=== PATIENT | male | born 1975 | race Caucasian/White ===

== ENCOUNTER 2016-11-27 13:07 | Inpatient (IN) | payer BC, OTHER ==
[~2016-11-27] VITALS: Ht 182.9 cm; Wt 88.5 kg
[~2016-11-27 13:07] MED LIST: BUPR100T6 PO
[2016-11-27] MEDS ORDERED: IV NORMAL SALINE 1000ML BAG 1,000 ML IV SCH (14:04)
[2016-11-27] MEDS ORDERED: ONDANSETRON PF 4 MG/2 ML VIAL. IV ONE (14:15)
[2016-11-27 14:17] LABS: BILIRUBIN,URINE NEGATIVE (NEG); GLUCOSE,URINE NEGATIVE (NEG); NITRITE,URINE NEGATIVE (NEG); PROTEIN,URINE 30 mg/dL (NEG-TRACE); UROBILINOGEN,URINE 0.2 mg/dL (0.2 mg/dL)
[2016-11-27 14:21] LABS: BARBITURATES NEG (NEG); BENZODIAZEPINES NEG (NEG); CANNABINOIDS POS (NEG); COCAINE NEG (NEG); METHADONE NEG (NEG); OPIATES NEG (NEG); PHENCYCLIDINE NEG (NEG)
[2016-11-27 14:22] LABS: BASO % 0 % (0-3); EOS % 0 % (0-3); HEMATOCRIT 42.7 % (39.0-53.0); HEMOGLOBIN 14.6 g/dL (13.0-17.5); LYMPH # 1.5 x10^3/uL (1.0-4.8); LYMPH % 5 % (24-48); MEAN CORPUSCULAR HEMOGLOBIN 31 pg (25-35); MEAN CORPUSCULAR HGB CONC 34 g/dL (31-37); MEAN CORPUSCULAR VOLUME 90 fL (79-100); MONO % 8 % (0-9); NEUT % 86 % (31-73); PLATELET COUNT 433 x10^3/uL (140-400); RED BLOOD COUNT 4.73 x10^6/uL (4.30-5.70); RED CELL DISTRIBUTION WIDTH 12.6 % (11.5-14.5); WHITE BLOOD COUNT 27.8 x10^3/uL (4.0-11.0)
[2016-11-27 14:25] LABS: BACTERIA,URINE 0 /HPF (0-FEW)
[2016-11-27 14:26] LABS: SQUAMOUS EPITHELIAL CELL,UR FEW /LPF
[2016-11-27 14:31] LABS: CALCIUM 8.5 mg/dL (8.5-10.1); GFR 82.8; POTASSIUM 3.4 mmol/L (3.5-5.1)
[2016-11-27 14:37] LABS: ALBUMIN/GLOBULIN RATIO 0.6 (1.0-1.7); TOTAL BILIRUBIN 0.8 mg/dL (0.2-1.0); TOTAL PROTEIN 7.9 g/dL (6.4-8.2)
[2016-11-27 15:14] LABS: PLT ESTIMATE INCREASED (ADEQUATE)
[2016-11-27 15:15] LABS: CRENATED RBC PRESENT; OVALOCYTES OCC; TOXIC GRANULATION SLIGHT
--- NOTE | 2016-11-27 15:26 | ED.ADGEN ---
Past Medical History Past Medical History: Other Additional Past Medical Histor: colitis Past Surgical History: Tonsillectomy, Other Additional Past Surgical Histo: vasectomy Alcohol Use: Occasionally Drug Use: None Adult General Chief Complaint Chief Complaint: ABDOMINAL PAIN HPI HPI Patient is a 41 year old man, with history of colitis, who completed a course of Flagyl and Cipro yesterday after being diagnosed with colitis at another hospital 2 weeks ago. Patient states that he was feeling better, with improving pain, nausea, vomiting and diarrhea, and then began experiencing exacerbation of symptoms again early this morning, with multiple doses of nausea, vomiting, and loose brown stool. Denies any blood in emesis or in stool. Patient states that he does not her primary care provider has not yet established follow-up with a GI doctor for additional evaluation. He states his pain is located down to the left lower quadrant, a sharp and cramping, states his pain is currently only one out of 10. Patient states he did have fevers at home during that previous week, states he did not check them a thermometer but he was having sweats that within break. He denies any injuries, any travel, any sick contacts or exposures, any inciting symptoms, any urinary complaints. Denies any previous history before 2 weeks ago. Review of Systems Review of Systems Constitutional: Denies fever or chills. [] Eyes: Denies change in visual acuity. [] HENT: Denies nasal congestion or sore throat. [] Respiratory: Denies cough or shortness of breath. [] Cardiovascular: Denies chest pain or edema. [] GI: Left lower quadrant abdominal pain, nausea, vomiting, diarrhea. No bloody stools or bloody emesis. : Denies dysuria. [] Musculoskeletal: Denies back pain or joint pain. [] Integument: Denies rash. [] Neurologic: Denies headache, focal weakness or sensory changes. [] Endocrine: Denies polyuria or polydipsia. [] Lymphatic: Denies swollen glands. [] Psychiatric: Denies depression or anxiety. [] Current Medications Current Medications Current Medications Medications (Trade) Dose Ordered Sig/North Start Time Stop Time Status Last Admin Dose Admin Fentanyl Citrate (Fentanyl 2ml Vial) 25 mcg PRN Q15MIN PRN 11/27/16 15:15 11/28/16 15:14 11/27/16 17:30 25 MCG Info (Do NOT chart on this entry -- for MONITORING) 1 each PRN DAILY PRN 11/27/16 15:30 11/29/16 15:29 Iohexol (Omnipaque 300 Mg/ml) 75 ml 1X ONCE 11/27/16 15:30 11/27/16 15:31 DC 11/27/16 15:26 75 ML Ondansetron HCl (Zofran) 4 mg 1X ONCE 11/27/16 14:15 11/27/16 14:16 DC 11/27/16 14:24 4 MG Sodium Chloride 1,000 ml @ 1,000 mls/hr Q1H 11/27/16 14:04 11/27/16 15:03 DC 11/27/16 14:04 1,000 MLS/HR Allergies Allergies Allergies Coded Allergies Type Severity Reaction Last Updated Verified No Known Drug Allergies 10/08/13 No Physical Exam Physical Exam Constitutional: Well developed, well nourished, no acute distress, non-toxic appearance. [] HENT: Normocephalic, atraumatic, bilateral external ears normal, oropharynx moist, no oral exudates, nose normal. [] Eyes: PERRLA, EOMI, conjunctiva normal, no discharge. [] Neck: Normal range of motion, no tenderness, supple, no stridor. [] Cardiovascular:Heart rate regular rhythm, no murmur, S1, S2, no rubs or gallops. [] Lungs & Thorax: Bilateral breath sounds clear to auscultation , no wheezing, rhonchi, rales. No chest crepitus or tenderness. [] Abdomen: Bowel sounds normal, soft, tenderness to palpation with guarding in the left lower quadrant, no rigidity, no rebound, no masses, no pulsatile masses. [] Skin: Warm, dry, no erythema, no rash. [] Back: No tenderness, no CVA tenderness. [] Extremities: No tenderness, no cyanosis, no clubbing, ROM intact, no edema. [] Neurologic: Alert and oriented X 3, normal motor function, normal sensory function, no focal deficits noted. [] Psychologic: Affect normal, judgement normal, mood normal. [] Current Patient Data Vital Signs Vital Signs Date Time Temp Pulse Resp B/P (MAP) Pulse Ox O2 Delivery O2 Flow Rate FiO2 11/27/16 16:41 110 40 144/67 (92) 99 11/27/16 16:20 Room Air 11/27/16 13:45 98.3 98.3 Lab Values Laboratory Tests Test 11/27/16 13:45 11/27/16 14:15 Urine Collection Type Unknown Urine Color [place] Urine Clarity Clear Urine pH 6.0 Urine Specific [place] 1.015 Urine Protein 30 mg/dL (NEG-TRACE) Urine Glucose (UA) Negative mg/dL (NEG) Urine Ketones (Stick) >=80 mg/dL (NEG) Urine Blood Negative (NEG) Urine Nitrite Negative (NEG) Urine Bilirubin Negative (NEG) Urine Urobilinogen Dipstick 0.2 mg/dL (0.2 mg/dL) Urine Leukocyte Esterase Small (NEG) Urine RBC 1-2 /HPF (0-2) Urine WBC 1-4 /HPF (0-4) Urine Squamous Epithelial Cells Few /LPF Urine Transitional Epithelial Cells Few /LPF Urine Bacteria 0 /HPF (0-FEW) Urine Mucus Mod /LPF Urine Opiates Screen Neg (NEG) Urine Methadone Screen Neg (NEG) Urine Barbiturates Neg (NEG) Urine Phencyclidine Screen Neg (NEG) Urine Amphetamine/Methamphetamine Neg (NEG) Urine Benzodiazepines Screen Neg (NEG) Urine Cocaine Screen Neg (NEG) Urine Cannabinoids Screen Pos (NEG) Urine Ethyl Alcohol Neg (NEG) White Blood Count 27.8 x10^3/uL (4.0-11.0) H Red Blood Count 4.73 x10^6/uL (4.30-5.70) Hemoglobin 14.6 g/dL (13.0-17.5) Hematocrit 42.7 % (39.0-53.0) Mean Corpuscular Volume 90 fL (79-100) Mean Corpuscular Hemoglobin 31 pg (25-35) Mean Corpuscular Hemoglobin Concent 34 g/dL (31-37) Red Cell Distribution Width 12.6 % (11.5-14.5) Platelet Count 433 x10^3/uL (140-400) H Neutrophils (%) (Auto) 86 % (31-73) H Lymphocytes (%) (Auto) 5 % (24-48) L Monocytes (%) (Auto) 8 % (0-9) Eosinophils (%) (Auto) 0 % (0-3) Basophils (%) (Auto) 0 % (0-3) Neutrophils # (Auto) 24.0 x10^3uL (1.8-7.7) H Lymphocytes # (Auto) 1.5 x10^3/uL (1.0-4.8) Monocytes # (Auto) 2.3 x10^3/uL (0.0-1.1) H Eosinophils # (Auto) 0.0 x10^3/uL (0.0-0.7) Basophils # (Auto) 0.0 x10^3/uL (0.0-0.2) Segmented Neutrophils % 89 % (35-66) H Lymphocytes % 2 % (24-48) L Monocytes % 9 % (0-10) Toxic Granulation Slight Platelet Estimate Increased (ADEQUATE) Platelet Clumps, EDTA Present Large Platelets Occ Giant Platelets Occ Ovalocytes Occ Crenated Cell Present Sodium Level 135 mmol/L (136-145) L Potassium Level 3.4 mmol/L (3.5-5.1) L Chloride Level 95 mmol/L (98-107) L Carbon Dioxide Level 31 mmol/L (21-32) Anion Gap 9 (6-14) Blood Urea Nitrogen 8 mg/dL (8-26) Creatinine 1.0 mg/dL (0.7-1.3) Estimated GFR (Cockcroft-Gault) 82.8 BUN/Creatinine Ratio 8 (6-20) Glucose Level 137 mg/dL (70-99) H Calcium Level 8.5 mg/dL (8.5-10.1) Total Bilirubin 0.8 mg/dL (0.2-1.0) Aspartate Amino Transferase (AST) 30 U/L (15-37) Alanine Aminotransferase (ALT) 27 U/L (16-63) Alkaline Phosphatase 83 U/L (46-116) Total Protein 7.9 g/dL (6.4-8.2) Albumin 3.0 g/dL (3.4-5.0) L Albumin/Globulin Ratio 0.6 (1.0-1.7) L Lipase 125 U/L (73-393) Laboratory Tests 11/27/16 14:15 Laboratory Tests 11/27/16 14:15 EKG EKG [] Radiology/Procedures Radiology/Procedures [][facility] [address] [place] [address] IMAGING REPORT Signed PATIENT: INOCENCIA SMITH ACCOUNT: [id number] : 1975 LOCATION: ER AGE: 41 SEX: M EXAM STATUS: REG ER ORD. PHYSICIAN: VERITO PHAM DO REASON: abd pain/fever/n/v/d PROCEDURE: CT ABD PELV W/ IV CONTRST ONLY Indication recent colitis. Nausea vomiting and diarrhea. Abdominal pain and fever. Axial images through the abdomen and pelvis were obtained. No oral contrast was administered. Approximately 75 cc of Omnipaque 300 was administered. No prior imaging of the abdomen or pelvis is available. The lung bases are clear. The liver and spleen appear unremarkable. The gallbladder appears grossly normal. No pancreatic adrenal or renal anomaly is seen. An acute or significant finding in the upper or mid abdomen is not seen. In the pelvis there are inflammatory changes associated with the sigmoid colon compatible with colitis. There is a large air and fluid collection in the left lower abdomen and pelvis measuring approximately 12 cm in length x 5.5 cm transverse compatible with an abscess. A much smaller abscess, measuring approximately 5.6 cm x 1.3 cm is seen immediately adjacent to the mid sigmoid colon with a somewhat larger abscess measuring approximately 4 cm in greatest dimension adjacent to the proximal sigmoid colon. A small amount of extraluminal air, in the mesentery, is seen associated with this latter 4 cm abscess. IMPRESSION: Findings predominantly centered on the sigmoid colon compatible with colitis. There are at least 3 abscesses in the pelvis the largest measuring 12 cm in greatest dimension DICTATED and SIGNED BY: INGRID MARINO MD DATE: 11/27/16 4089 CC: VERITO PHAM DO; NO PCP ~ Course & Med Decision Making Course & Med Decision Making Pertinent Labs and Imaging studies reviewed. (See chart for details) Patient with tenderness palpation, history concerning for colitis that is refractory to outpatient antibiotic treatment. Discussion at bedside regarding risk versus benefit of proceeding with repeat CT, patient is agreeable to receiving laboratory studies repeat CT abdomen and pelvis with contrast. Laboratory studies reveal a leukocytosis of 27, with a left shift. Patient with at least 3 large abscesses noted on CT, with colitis in the sigmoid colon, and intraluminal air noted. I did discuss findings with patient and family at bedside, patient is agreeable for [place] or the hospital for IV antibiotics and consultation with surgery interventional radiology. Findings as above discussed with Dr. Gonzalez of general surgery, who will evaluate patient, as agreement at this time with plan for Zosyn, I also discussed coverage with Dr. Arevalo of infectious disease, he recommends adding fluconazole to the Zosyn coverage, and he will follow the patient as well. Additionally consultation was placed prior to determine if the abscesses can be drained with their assistance. Findings as above discussed with Dr. Swan of internal medicine, patient accepted his service as a full admission to the medical telemetry floor , patient with heart rate in the 90s, blood pressures remain 140s over 60s, he remained afebrile emergency Department, resting comfortably after receiving antiemetics. Bridge orders entered per discussion. Dragon Disclaimer Dragon Disclaimer This electronic medical record was generated, in whole or in part, using a voice recognition dictation system. Departure Impression: Primary Impression: Colitis Disposition: ADMITTED INPATIENT Admitting Physician: Danna Swan Condition: IMPROVED VERITO PHAM DO Nov 27, 2016 15:26
[2016-11-27] MEDS ORDERED: IOHEXOL 300 MG/ML 75 ML VIAL IV ONE (15:30)
[2016-11-27] MEDS ORDERED: CONTRAST GIVEN MC PRN (15:30)
[2016-11-27] MEDS: fentaNYL PF VIAL 100 MCG/2 ML VIAL IV PRN ×2 (15:38→17:30)
--- NOTE | 2016-11-27 16:01 | RAD ---
Indication recent colitis. Nausea vomiting and diarrhea. Abdominal pain and fever. Axial images through the abdomen and pelvis were obtained. No oral contrast was administered. Approximately 75 cc of Omnipaque 300 was administered. No prior imaging of the abdomen or pelvis is available. The lung bases are clear. The liver and spleen appear unremarkable. The gallbladder appears grossly normal. No pancreatic adrenal or renal anomaly is seen. An acute or significant finding in the upper or mid abdomen is not seen. In the pelvis there are inflammatory changes associated with the sigmoid colon compatible with colitis. There is a large air and fluid collection in the left lower abdomen and pelvis measuring approximately 12 cm in length x 5.5 cm transverse compatible with an abscess. A much smaller abscess, measuring approximately 5.6 cm x 1.3 cm is seen immediately adjacent to the mid sigmoid colon with a somewhat larger abscess measuring approximately 4 cm in greatest dimension adjacent to the proximal sigmoid colon. A small amount of extraluminal air, in the mesentery, is seen associated with this latter 4 cm abscess. IMPRESSION: Findings predominantly centered on the sigmoid colon compatible with colitis. There are at least 3 abscesses in the pelvis the largest measuring 12 cm in greatest dimension
[2016-11-27] MEDS ORDERED: PIPERACILLIN/TAZOBACTAM 3.375 GM in IV NORMAL SALINE 50ML 50 ML IV ONE (17:00)
[2016-11-27] MEDS ORDERED: PIP/TAZO PER PHARMACY MC PRN (17:00)
[2016-11-27 18:28] VITALS: BP 131/65
[2016-11-27 19:00] VITALS: BP 139/72
[2016-11-27] MEDS ORDERED: IV DEXTROSE 5 %-0.45 % NACL 1,000 ML IV ONE (21:00)
[2016-11-27] MEDS ORDERED: ONDANSETRON PF 4 MG/2 ML VIAL. IV PRN ×2 (21:00)
[2016-11-27] MEDS ORDERED: ACETAMINOPHEN 325 MG TABLET. PO PRN (21:00)
[2016-11-27] MEDS: MAG HYDROX/ALUMINUM HYD/SIMETH 30 ML ORAL.SUSP PO PRN (21:41)
[2016-11-27] MEDS: MORPHINE SULFATE 2 MG/ML DISP.SYRIN. IV PRN (21:44)
[2016-11-27] MEDS: FLUCONAZOLE 400MG/200ML PREMIX 200 ML IV SCH (21:45)
[2016-11-27] MEDS: ZOLPIDEM 5 MG TABLET. PO PRN (21:45)
[2016-11-27] MEDS: IV NORMAL SALINE 1000ML BAG 1,000 ML IV SCH (21:46)
--- NOTE | 2016-11-27 22:06 | HP ---
ADMIT DATE: 11/27/2016 CHIEF COMPLAINT: Abdominal pain. HISTORY OF PRESENT ILLNESS: The patient is a pleasant middle-aged male who was just released from another hospital where he had been treated for colitis. He went home with a script for Navya and yl. I think he finished that. When he presented to our ER, he is still hurting. We scanned his belly. He has got three large abscesses. We are going to consult Interventional Radiology to place a drain as well as General Surgery to consider surgery if we need to. PAST MEDICAL HISTORY: The recently treated colitis, tonsillectomy and vasectomy. ALLERGIES: None. FAMILY HISTORY: Hypertension. SOCIAL HISTORY: Does not drink, smoke or take drugs. MEDICATIONS: Reviewed, please refer to the MRAD. REVIEW OF SYSTEMS: GENERAL: No history of weight change, weakness or fevers. SKIN: No bruising, hair changes or rashes. EYES: No blurred, double or loss of vision. NOSE AND THROAT: No history of nosebleeds, hoarseness or sore throat. HEART: No history of palpitations, chest pain or shortness of breath on exertion. LUNGS: Denies cough, hemoptysis, wheezing or shortness of breath. GASTROINTESTINAL: He complains of abdominal pain. GENITOURINARY: No history of frequency, urgency, hesitancy or nocturia. NEUROLOGIC: Denies history of numbness, tingling, tremor or weakness. PSYCHIATRIC: No history of panic, anxiety or depression. ENDOCRINE: No history of heat or cold intolerance, polyuria or polydipsia. EXTREMITIES: Denies muscle weakness, joint pain, pain on walking or stiffness. PHYSICAL EXAMINATION: VITAL SIGNS: Temperature afebrile, pulse 67, respirations 18, blood pressure 142/90. GENERAL: He is alert, cooperative. His is present. HEART: Normal S1, S2. LUNGS: Clear. ABDOMEN: Soft. Decreased bowel sounds, tender diffusely. EXTREMITIES: Trace edema. SKIN: No rashes. PSYCHIATRIC: He is a little anxious. VASCULAR: Good capillary refill. ENDOCRINE: No thyromegaly. LYMPHATICS: No cervical nodes. HEMATOPOIETIC: No bruising. LABORATORY DATA: White count is 28, hemoglobin 14, platelets 433. Electrolytes: Sodium 135, potassium 3.4, chloride 95, bicarbonate 31, BUN 8, creatinine 1 and glucose 137. ASSESSMENT AND PLAN: Colitis with multiple abscesses. The patient has been admitted. We will start IV Zosyn. Consult Infectious Disease. Consult General Surgery. Continue home medicines. Clear liquid diet. ____ go to the Surgery, then we will make him n.p.o. PROGNOSIS: Very guarded. SUSY BHARDWAJ DO DR: Riri JOB#: [id number] / [id number]
[2016-11-27 23:00] VITALS: BP 140/74
[2016-11-28] VITALS (14 sets, daily range): BP systolic 110–131; BP diastolic 63–80
--- NOTE | 2016-11-28 00:54 | ACF ---
Admission Forms Criteria ABDOMINAL PAIN Clinical Indications for Admission to Inpatient Care ( flandreau/check or initial the applicable condition/criteria): Admission is indicated for ANY ONE of the following (1)(2)(3)(4)(5)(6): [ ]I. Surgery needed that cannot be performed on ambulatory basis [ ]II. Peritoneal signs present (eg, rebound tenderness, rigidity) [ ]III. Evaluation requires patient to not eat or drink for extended period ( eg, more than 24 hours). [ X]IV. Inpatient admission required[B] rather than observation care (see Abdominal Pain: Observation Care guideline as appropriate) because of ANY ONE of the following(7)(8)(9): [ ] a) Hemodynamic instability [ ]b) Severe pain requiring acute inpatient management [X ]c) Identification of etiology or finding that requires inpatient care (eg, aortic dissection, free air,bowel ischemia)(10) [ ]d) Absent bowel sounds with complete ileus (11) [ ]e) Signs of intestinal obstruction[C] [ ]f) Suspected toxic megacolon [ ]g) Severe electrolyte abnormalities requiring inpatient care [ ]h) High fever or infection requiring inpatient admission as indicated by ANY ONE of the following (12)(13): [ ]i) Appropriate outpatient or observation care antimicrobial treatment unavailable, not effective, or not feasible [ ]ii) Documented bacteremia [ ]iii) Temperature greater than 104.9 degrees F (40.5 degrees C) (oral) [ ]iv) Temperature greater than 103.1 degrees F (39.5 degrees C) ( oral) or less than 96.8 degrees F (36 degrees C) (rectal) that does not respond to all emergency treatment measures [ ]i) IV fluid required rather than oral rehydration to replace significant ongoing (eg, for greater than 24 hours) losses (greater than 3 L/m2 per day)(14)(15) [ ]j) Percutaneous or open drainage (eg, abscess, biliary tract) procedures [ ]k) Parenteral nutrition regimen that must be implemented on inpatient basis [ ]l) Other condition, treatment, or monitoring requiring inpatient admission Extended stay beyond goal length of stay may be needed for (1)(3)(4)(10)(16): [ ]a) Surgery (e.g., colectomy, revascularization procedure) [ ]b) Persistent abdominal pain with suspected intra-abdominal process [ ]c) Diagnosed condition requiring continued stay (e.g., pancreatitis, complicated diverticulitis) The original [facility] content created by [facility] has been revised. The portions of the content which have been revised are identified through the use of italic text, and [facility] has neither reviewed nor approved the modified material.All other unmodified content is copyright [facility]. Please see references footnoted in the original [facility] edition 2015 Admission Criteria Met?: Yes SHANELLE GUPTA Nov 28, 2016 00:54
[2016-11-28] MEDS: PIPERACILLIN/TAZOBACTAM 3.375 GM in IV NORMAL SALINE 50ML 50 ML IV SCH ×4 (01:05→18:28)
[2016-11-28 06:25] LABS: CALCIUM 8.5 mg/dL (8.5-10.1); CREATININE 0.8 mg/dL (0.7-1.3); GFR 107.1; POTASSIUM 3.1 mmol/L (3.5-5.1)
[2016-11-28 06:38] LABS: BASO % 0 % (0-3); EOS % 0 % (0-3); HEMATOCRIT 36.3 % (39.0-53.0); HEMOGLOBIN 12.7 g/dL (13.0-17.5); LYMPH # 1.2 x10^3/uL (1.0-4.8); LYMPH % 6 % (24-48); MEAN CORPUSCULAR HEMOGLOBIN 32 pg (25-35); MEAN CORPUSCULAR HGB CONC 35 g/dL (31-37); MEAN CORPUSCULAR VOLUME 90 fL (79-100); MONO % 9 % (0-9); NEUT % 85 % (31-73); PLATELET COUNT 371 x10^3/uL (140-400); RED BLOOD COUNT 4.03 x10^6/uL (4.30-5.70); WHITE BLOOD COUNT 18.4 x10^3/uL (4.0-11.0)
[2016-11-28] MEDS: PANTOPRAZOLE 40 MG TABLET.DR. PO SCH (07:30)
--- NOTE | 2016-11-28 08:35 | PDOC2 ---
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 He just finished is treatment and began having abdominal pain -LLQ, emesis, and generalized ill feeling. + intermittent fevers/chills, low appetite. + new onset diarrhea No history of colitis or IBD, never had a colonoscopy He is down here with family, his father . Past Medical History Past Medical History colitis recent Past Surgical History Past Surgical History: Tonsillectomy, Other (vasectomy) Family History Family History: Other (no colon cancer, no IBD) Social History <1 pack per day ALCOHOL: occassional Drugs: Marijuana Current Medications Current Medications Current Medications Sodium Chloride 1,000 ml @ 1,000 mls/hr Q1H IV Last administered on 11/27/16 14:04; Start 11/27/16 at 14:04; Stop 11/27/16 at 15:03; Status DC Ondansetron HCl (Zofran) 4 mg 1X ONCE IV Last administered on 11/27/16 14:24 ; Start 11/27/16 at 14:15; Stop 11/27/16 at 14:16; Status DC Fentanyl Citrate (Fentanyl 2ml Vial) 25 mcg PRN Q15MIN PRN IV PAIN GREATER THAN 3/10 Last administered on 11/27/16 17:30; Start 11/27/16 at 15:15; Stop at 15:14 Iohexol (Omnipaque 300 Mg/ml) 75 ml 1X ONCE IV Last administered on 11/27/16 15:26; Start 11/27/16 at 15:30; Stop 11/27/16 at 15:31; Status DC Info (Do NOT chart on this entry -- for MONITORING) 1 each PRN DAILY PRN MC SEE COMMENTS; Start 11/27/16 at 15:30; Stop 11/29/16 at 15:29 Piperacillin Sod/ Tazobactam Sod (Zosyn Per Pharmacy) 1 each PRN DAILY PRN MC SEE COMMENTS; Start 11/27/16 at 17:00 Piperacillin Sod/ Tazobactam Sod 3.375 gm/Sodium Chloride 50 ml @ 100 mls/hr 1X ONCE IV Last administered on 11/27/16 17:30; Start 11/27/16 at 17:00; Stop 11/27/16 at 17:29; Status DC Piperacillin Sod/ Tazobactam Sod 3.375 gm/Sodium Chloride 50 ml @ 100 mls/hr Q6HRS IV Last administered on 11/28/16 06:20; Start 11/28/16 at 00:00 Ondansetron HCl (Zofran) 4 mg PRN Q6HRS PRN IV NAUSEA/VOMITING; Start 11/27/16 at 21:00 Sodium Chloride 1,000 ml @ 75 mls/hr [id number] IV Last administered on 21:46; Start 11/27/16 at 21:00 Morphine Sulfate 2 mg PRN Q2HR PRN IV PAIN Last administered on 11/27/16 21:44 ; Start 11/27/16 at 21:00 Al Hydroxide/Mg Hydroxide (Mylanta Plus Xs) 30 ml PRN Q6HRS PRN PO HEARTBURN / GAS Last administered on 11/27/16 21:41; Start 11/27/16 at 21:00 Zolpidem Tartrate (Ambien) 5 mg PRN QHS PRN PO INSOMNIA Last administered on 21:45; Start 11/27/16 at 21:00 Pantoprazole Sodium (Protonix) 40 mg DAILYAC PO ; Start 11/28/16 at 07:30 Acetaminophen (Tylenol) 650 mg PRN Q6HRS PRN PO FEVER > 100.5'F Last administered on 11/27/16 21:45; Start 11/27/16 at 21:00 Ondansetron HCl (Zofran) 4 mg PRN Q8HRS PRN IV NAUSEA/VOMITING; Start 11/27/16 at 21:00; Stop 11/28/16 at 20:59 Morphine Sulfate 4 mg PRN Q2HR PRN IV PAIN; Start 11/27/16 at 21:00; Stop 11/28 at 20:59 Fluconazole/ Sodium Chloride 200 ml @ 100 mls/hr Q24H IV Last administered on 8/10/17at 21:45; Start 11/27/16 at 21:30 Dextrose/Sodium Chloride 1,000 ml @ 100 mls/hr 1X ONCE IV ; Start 11/27/16 at 21:00; Stop 11/28/16 at 06:59; Status DC Active Scripts Active Reported Wellbutrin (Bupropion Hcl) 100 Mg Tablet 150 Mg PO DAILY Allergies Allergies: Coded Allergies: latex (Verified Allergy, Mild, 11/28/16) ROS General: YES: Chills, Fatigue, Other (fevers) PSYCHOLOGICAL ROS: No: Anxiety, Depression Eyes: No Blurry vision, No Double vision HEENT: No: Heacaches, Sore Throat Hematological and Lymphatic: No: Bleeding Problems, Blood Clots Respiratory: No: Cough, Shortness of breath Cardiovascular: No Chest Pain, No Palpitations Gastrointestinal: Yes Other (see hpi) Genitourinary: No Dysuria, No Retention Musculoskeletal: No Joint Pain, No Muscle Pain Neurological: No Impaired Coord/balance, No Numbness/Tingling Skin: No Pruritus, No Rash Physical Exam General: Alert, Oriented X3, Cooperative, No acute distress HEENT: PERRLA, Mucous membr. moist/pink Lungs: Clear to auscultation, Normal air movement Heart: Regular rate, Normal S1, Normal S2, No murmurs Abdomen: Soft, Other (ND, mild tenderness to LLQ, no peritoneal signs ) Extremities: No clubbing, No cyanosis Skin: No rashes, No breakdown Neuro: Normal gait, Normal speech Psych/Mental Status: Mental status NL, Mood NL MUSCULOSKELETAL: No deformity, No swelling Vitals VITALS Vital Signs Date Time Temp Pulse Resp B/P (MAP) Pulse Ox O2 Delivery O2 Flow Rate FiO2 11/28/16 03:00 97.7 105 18 127/66 (86) 97 Room Air 97.7 Labs Labs Laboratory Tests Test 11/27/16 13:45 11/27/16 14:15 11/28/16 00:02 11/28/16 04:30 Urine Collection Type Unknown Urine Color Marion Urine Clarity Clear Urine pH 6.0 Urine Specific [place]lor 1.015 Urine Protein 30 mg/dL (NEG-TRACE) Urine Glucose (UA) Negative mg/dL (NEG) Urine Ketones (Stick) >=80 mg/dL (NEG) Urine Blood Negative (NEG) Urine Nitrite Negative (NEG) Urine Bilirubin Negative (NEG) Urine Urobilinogen Dipstick 0.2 mg/dL (0.2 mg/dL) Urine Leukocyte Esterase Small (NEG) Urine RBC 1-2 /HPF (0-2) Urine WBC 1-4 /HPF (0-4) Urine Squamous Epithelial Cells Few /LPF Urine Transitional Epithelial Cells Few /LPF Urine Bacteria 0 /HPF (0-FEW) Urine Mucus Mod /LPF Urine Opiates Screen Neg (NEG) Urine Methadone Screen Neg (NEG) Urine Barbiturates Neg (NEG) Urine Phencyclidine Screen Neg (NEG) Urine Amphetamine/Methamphetamine Neg (NEG) Urine Benzodiazepines Screen Neg (NEG) Urine Cocaine Screen Neg (NEG) Urine Cannabinoids Screen Pos (NEG) Urine Ethyl Alcohol Neg (NEG) White Blood Count 27.8 x10^3/uL (4.0-11.0) 18.4 x10^3/uL (4.0-11.0) Red Blood Count 4.73 x10^6/uL (4.30-5.70) 4.03 x10^6/uL (4.30-5.70) Hemoglobin 14.6 g/dL (13.0-17.5) 12.7 g/dL (13.0-17.5) Hematocrit 42.7 % (39.0-53.0) 36.3 % (39.0-53.0) Mean Corpuscular Volume 90 fL (79-100) 90 fL (79-100) Mean Corpuscular Hemoglobin 31 pg (25-35) 32 pg (25-35) Mean Corpuscular Hemoglobin Concent 34 g/dL (31-37) 35 g/dL (31-37) Red Cell Distribution Width 12.6 % (11.5-14.5) 13.0 % (11.5-14.5) Platelet Count 433 x10^3/uL (140-400) 371 x10^3/uL (140-400) Neutrophils (%) (Auto) 86 % (31-73) 85 % (31-73) Lymphocytes (%) (Auto) 5 % (24-48) 6 % (24-48) Monocytes (%) (Auto) 8 % (0-9) 9 % (0-9) Eosinophils (%) (Auto) 0 % (0-3) 0 % (0-3) Basophils (%) (Auto) 0 % (0-3) 0 % (0-3) Neutrophils # (Auto) 24.0 x10^3uL (1.8-7.7) 15.6 x10^3uL (1.8-7.7) Lymphocytes # (Auto) 1.5 x10^3/uL (1.0-4.8) 1.2 x10^3/uL (1.0-4.8) Monocytes # (Auto) 2.3 x10^3/uL (0.0-1.1) 1.6 x10^3/uL (0.0-1.1) Eosinophils # (Auto) 0.0 x10^3/uL (0.0-0.7) 0.0 x10^3/uL (0.0-0.7) Basophils # (Auto) 0.0 x10^3/uL (0.0-0.2) 0.0 x10^3/uL (0.0-0.2) Segmented Neutrophils % 89 % (35-66) Lymphocytes % 2 % (24-48) Monocytes % 9 % (0-10) Toxic Granulation Slight Platelet Estimate Increased (ADEQUATE) Platelet Clumps, EDTA Present Large Platelets Occ Giant Platelets Occ Ovalocytes Occ Crenated Cell Present Sodium Level 135 mmol/L (136-145) 138 mmol/L (136-145) Potassium Level 3.4 mmol/L (3.5-5.1) 3.1 mmol/L (3.5-5.1) Chloride Level 95 mmol/L (98-107) 98 mmol/L (98-107) Carbon Dioxide Level 31 mmol/L (21-32) 27 mmol/L (21-32) Anion Gap 9 (6-14) 13 (6-14) Blood Urea Nitrogen 8 mg/dL (8-26) 8 mg/dL (8-26) Creatinine 1.0 mg/dL (0.7-1.3) 0.8 mg/dL (0.7-1.3) Estimated GFR (Cockcroft-Gault) 82.8 107.1 BUN/Creatinine Ratio 8 (6-20) Glucose Level 137 mg/dL (70-99) 66 mg/dL (70-99) Calcium Level 8.5 mg/dL (8.5-10.1) 8.5 mg/dL (8.5-10.1) Total Bilirubin 0.8 mg/dL (0.2-1.0) Aspartate Amino Transf (AST/SGOT) 30 U/L (15-37) Alanine Aminotransferase (ALT/SGPT) 27 U/L (16-63) Alkaline Phosphatase 83 U/L (46-116) Total Protein 7.9 g/dL (6.4-8.2) Albumin 3.0 g/dL (3.4-5.0) Albumin/Globulin Ratio 0.6 (1.0-1.7) Lipase 125 U/L (73-393) Lactic Acid Level 0.8 mmol/L (0.4-2.0) Laboratory Tests Test 11/27/16 13:45 11/27/16 14:15 11/28/16 00:02 11/28/16 04:30 Urine Collection Type Unknown Urine Color Marion Urine Clarity Clear Urine pH 6.0 Urine Specific [place] 1.015 Urine Protein 30 mg/dL (NEG-TRACE) Urine Glucose (UA) Negative mg/dL (NEG) Urine Ketones (Stick) >=80 mg/dL (NEG) Urine Blood Negative (NEG) Urine Nitrite Negative (NEG) Urine Bilirubin Negative (NEG) Urine Urobilinogen Dipstick 0.2 mg/dL (0.2 mg/dL) Urine Leukocyte Esterase Small (NEG) Urine RBC 1-2 /HPF (0-2) Urine WBC 1-4 /HPF (0-4) Urine Squamous Epithelial Cells Few /LPF Urine Transitional Epithelial Cells Few /LPF Urine Bacteria 0 /HPF (0-FEW) Urine Mucus Mod /LPF Urine Opiates Screen Neg (NEG) Urine Methadone Screen Neg (NEG) Urine Barbiturates Neg (NEG) Urine Phencyclidine Screen Neg (NEG) Urine Amphetamine/Methamphetamine Neg (NEG) Urine Benzodiazepines Screen Neg (NEG) Urine Cocaine Screen Neg (NEG) Urine Cannabinoids Screen Pos (NEG) Urine Ethyl Alcohol Neg (NEG) White Blood Count 27.8 x10^3/uL (4.0-11.0) 18.4 x10^3/uL (4.0-11.0) Red Blood Count 4.73 x10^6/uL (4.30-5.70) 4.03 x10^6/uL (4.30-5.70) Hemoglobin 14.6 g/dL (13.0-17.5) 12.7 g/dL (13.0-17.5) Hematocrit 42.7 % (39.0-53.0) 36.3 % (39.0-53.0) Mean Corpuscular Volume 90 fL (79-100) 90 fL (79-100) Mean Corpuscular Hemoglobin 31 pg (25-35) 32 pg (25-35) Mean Corpuscular Hemoglobin Concent 34 g/dL (31-37) 35 g/dL (31-37) Red Cell Distribution Width 12.6 % (11.5-14.5) 13.0 % (11.5-14.5) Platelet Count 433 x10^3/uL (140-400) 371 x10^3/uL (140-400) Neutrophils (%) (Auto) 86 % (31-73) 85 % (31-73) Lymphocytes (%) (Auto) 5 % (24-48) 6 % (24-48) Monocytes (%) (Auto) 8 % (0-9) 9 % (0-9) Eosinophils (%) (Auto) 0 % (0-3) 0 % (0-3) Basophils (%) (Auto) 0 % (0-3) 0 % (0-3) Neutrophils # (Auto) 24.0 x10^3uL (1.8-7.7) 15.6 x10^3uL (1.8-7.7) Lymphocytes # (Auto) 1.5 x10^3/uL (1.0-4.8) 1.2 x10^3/uL (1.0-4.8) Monocytes # (Auto) 2.3 x10^3/uL (0.0-1.1) 1.6 x10^3/uL (0.0-1.1) Eosinophils # (Auto) 0.0 x10^3/uL (0.0-0.7) 0.0 x10^3/uL (0.0-0.7) Basophils # (Auto) 0.0 x10^3/uL (0.0-0.2) 0.0 x10^3/uL (0.0-0.2) Segmented Neutrophils % 89 % (35-66) Lymphocytes % 2 % (24-48) Monocytes % 9 % (0-10) Toxic Granulation Slight Platelet Estimate Increased (ADEQUATE) Platelet Clumps, EDTA Present Large Platelets Occ Giant Platelets Occ Ovalocytes Occ Crenated Cell Present Sodium Level 135 mmol/L (136-145) 138 mmol/L (136-145) Potassium Level 3.4 mmol/L (3.5-5.1) 3.1 mmol/L (3.5-5.1) Chloride Level 95 mmol/L (98-107) 98 mmol/L (98-107) Carbon Dioxide Level 31 mmol/L (21-32) 27 mmol/L (21-32) Anion Gap 9 (6-14) 13 (6-14) Blood Urea Nitrogen 8 mg/dL (8-26) 8 mg/dL (8-26) Creatinine 1.0 mg/dL (0.7-1.3) 0.8 mg/dL (0.7-1.3) Estimated GFR (Cockcroft-Gault) 82.8 107.1 BUN/Creatinine Ratio 8 (6-20) Glucose Level 137 mg/dL (70-99) 66 mg/dL (70-99) Calcium Level 8.5 mg/dL (8.5-10.1) 8.5 mg/dL (8.5-10.1) Total Bilirubin 0.8 mg/dL (0.2-1.0) Aspartate Amino Transf (AST/SGOT) 30 U/L (15-37) Alanine Aminotransferase (ALT/SGPT) 27 U/L (16-63) Alkaline Phosphatase 83 U/L (46-116) Total Protein 7.9 g/dL (6.4-8.2) Albumin 3.0 g/dL (3.4-5.0) Albumin/Globulin Ratio 0.6 (1.0-1.7) Lipase 125 U/L (73-393) Lactic Acid Level 0.8 mmol/L (0.4-2.0) Images Images ct reviewed Assessment/Plan Assessment/Plan colitis, pelvic abscesses continue abx ID consult pending Cdiff pending IR consult for drainage of pelvic abscess tobaccoism GALILEA VILLAGRAN MD 11/28/16 1630: CONSULT Allergies Allergies: Coded Allergies: latex (Verified Allergy, Mild, 11/28/16) Assessment/Plan Assessment/Plan Pt seen and examined. Agree with Ms. Nickel's note Pt reports feeling better then he has in weeks after the drainage procedure abd soft, drain with purulent output cont abx and drains recommend elective colonoscopy no immediate surgical plans Thanks for consult! FALLON STOKES APRN Nov 28, 2016 08:35 GALILEA VILLAGRAN MD Nov 28, 2016 16:30
[2016-11-28] MEDS: MORPHINE SULFATE 2 MG/ML DISP.SYRIN. IV PRN ×2 (08:38→10:55)
[2016-11-28 10:17] LABS: INR 1.2 (0.8-1.1); PROTHROMBIN TIME PATIENT 14.9 SEC (11.7-14.0)
[2016-11-28] MEDS: IV NORMAL SALINE 1000ML BAG 1,000 ML IV SCH (10:21)
[2016-11-28] MEDS: POTASSIUM CHLORIDE 10MEQ 100 ML IV SCH ×4 (10:22→17:46)
--- NOTE | 2016-11-28 11:58 | PDOC ---
PROGRESS NOTES Chief Complaint Chief Complaint abd pain with sigmoid colitis and abd/pelvis abscess recent colitis on po abx sepsis hypokalemia plan: sx consulted, IR consult for abscess drainage id consult pending on zosyn, fluconazole npo for now ivf replete K dvt ppx tmr gi ppx labs tmr History of Present Illness History of Present Illness mild left abd pain with pain meds high wbc, better tho fever Vitals Vitals Vital Signs Date Time Temp Pulse Resp B/P (MAP) Pulse Ox O2 Delivery O2 Flow Rate FiO2 11/28/16 10:55 16 Room Air 11/28/16 03:00 97.7 105 127/66 (86) 97 97.7 Physical Exam General: Alert, Oriented X3, Cooperative, No acute distress Heart: Regular rate, Normal S1, Normal S2, No murmurs Lungs: Clear Abdomen: Soft, Other (ND, moderate tenderness to LLQ, + guarding) Extremities: No clubbing, No cyanosis Skin: No rashes, No breakdown Labs LABS Laboratory Tests Test 11/27/16 13:45 11/27/16 14:15 11/28/16 00:02 11/28/16 04:30 Urine Collection Type Unknown Urine Color [place] Urine Clarity Clear Urine pH 6.0 Urine Specific [place] 1.015 Urine Protein 30 mg/dL (NEG-TRACE) Urine Glucose (UA) Negative mg/dL (NEG) Urine Ketones (Stick) >=80 mg/dL (NEG) Urine Blood Negative (NEG) Urine Nitrite Negative (NEG) Urine Bilirubin Negative (NEG) Urine Urobilinogen Dipstick 0.2 mg/dL (0.2 mg/dL) Urine Leukocyte Esterase Small (NEG) Urine RBC 1-2 /HPF (0-2) Urine WBC 1-4 /HPF (0-4) Urine Squamous Epithelial Cells Few /LPF Urine Transitional Epithelial Cells Few /LPF Urine Bacteria 0 /HPF (0-FEW) Urine Mucus Mod /LPF Urine Opiates Screen Neg (NEG) Urine Methadone Screen Neg (NEG) Urine Barbiturates Neg (NEG) Urine Phencyclidine Screen Neg (NEG) Urine Amphetamine/Methamphetamine Neg (NEG) Urine Benzodiazepines Screen Neg (NEG) Urine Cocaine Screen Neg (NEG) Urine Cannabinoids Screen Pos (NEG) Urine Ethyl Alcohol Neg (NEG) White Blood Count 27.8 x10^3/uL (4.0-11.0) 18.4 x10^3/uL (4.0-11.0) Red Blood Count 4.73 x10^6/uL (4.30-5.70) 4.03 x10^6/uL (4.30-5.70) Hemoglobin 14.6 g/dL (13.0-17.5) 12.7 g/dL (13.0-17.5) Hematocrit 42.7 % (39.0-53.0) 36.3 % (39.0-53.0) Mean Corpuscular Volume 90 fL (79-100) 90 fL (79-100) Mean Corpuscular Hemoglobin 31 pg (25-35) 32 pg (25-35) Mean Corpuscular Hemoglobin Concent 34 g/dL (31-37) 35 g/dL (31-37) Red Cell Distribution Width 12.6 % (11.5-14.5) 13.0 % (11.5-14.5) Platelet Count 433 x10^3/uL (140-400) 371 x10^3/uL (140-400) Neutrophils (%) (Auto) 86 % (31-73) 85 % (31-73) Lymphocytes (%) (Auto) 5 % (24-48) 6 % (24-48) Monocytes (%) (Auto) 8 % (0-9) 9 % (0-9) Eosinophils (%) (Auto) 0 % (0-3) 0 % (0-3) Basophils (%) (Auto) 0 % (0-3) 0 % (0-3) Neutrophils # (Auto) 24.0 x10^3uL (1.8-7.7) 15.6 x10^3uL (1.8-7.7) Lymphocytes # (Auto) 1.5 x10^3/uL (1.0-4.8) 1.2 x10^3/uL (1.0-4.8) Monocytes # (Auto) 2.3 x10^3/uL (0.0-1.1) 1.6 x10^3/uL (0.0-1.1) Eosinophils # (Auto) 0.0 x10^3/uL (0.0-0.7) 0.0 x10^3/uL (0.0-0.7) Basophils # (Auto) 0.0 x10^3/uL (0.0-0.2) 0.0 x10^3/uL (0.0-0.2) Segmented Neutrophils % 89 % (35-66) Lymphocytes % 2 % (24-48) Monocytes % 9 % (0-10) Toxic Granulation Slight Platelet Estimate Increased (ADEQUATE) Platelet Clumps, EDTA Present Large Platelets Occ Giant Platelets Occ Ovalocytes Occ Crenated Cell Present Sodium Level 135 mmol/L (136-145) 138 mmol/L (136-145) Potassium Level 3.4 mmol/L (3.5-5.1) 3.1 mmol/L (3.5-5.1) Chloride Level 95 mmol/L (98-107) 98 mmol/L (98-107) Carbon Dioxide Level 31 mmol/L (21-32) 27 mmol/L (21-32) Anion Gap 9 (6-14) 13 (6-14) Blood Urea Nitrogen 8 mg/dL (8-26) 8 mg/dL (8-26) Creatinine 1.0 mg/dL (0.7-1.3) 0.8 mg/dL (0.7-1.3) Estimated GFR (Cockcroft-Gault) 82.8 107.1 BUN/Creatinine Ratio 8 (6-20) Glucose Level 137 mg/dL (70-99) 66 mg/dL (70-99) Calcium Level 8.5 mg/dL (8.5-10.1) 8.5 mg/dL (8.5-10.1) Total Bilirubin 0.8 mg/dL (0.2-1.0) Aspartate Amino Transf (AST/SGOT) 30 U/L (15-37) Alanine Aminotransferase (ALT/SGPT) 27 U/L (16-63) Alkaline Phosphatase 83 U/L (46-116) Total Protein 7.9 g/dL (6.4-8.2) Albumin 3.0 g/dL (3.4-5.0) Albumin/Globulin Ratio 0.6 (1.0-1.7) Lipase 125 U/L (73-393) Lactic Acid Level 0.8 mmol/L (0.4-2.0) Test 11/28/16 09:45 Prothrombin Time 14.9 SEC (11.7-14.0) Prothromb Time International Ratio 1.2 (0.8-1.1) Activated Partial Thromboplast Time 30 SEC (24-38) Review of Systems Review of Systems no chills, sob or chest pain Comment Review of Relevant I have reviewed the following items bernardo (where applicable) has been applied. Labs Laboratory Tests Test 11/27/16 13:45 11/27/16 14:15 11/28/16 00:02 11/28/16 04:30 Urine Collection Type Unknown Urine Color [place] Urine Clarity Clear Urine pH 6.0 Urine Specific [place] 1.015 Urine Protein 30 mg/dL (NEG-TRACE) Urine Glucose (UA) Negative mg/dL (NEG) Urine Ketones (Stick) >=80 mg/dL (NEG) Urine Blood Negative (NEG) Urine Nitrite Negative (NEG) Urine Bilirubin Negative (NEG) Urine Urobilinogen Dipstick 0.2 mg/dL (0.2 mg/dL) Urine Leukocyte Esterase Small (NEG) Urine RBC 1-2 /HPF (0-2) Urine WBC 1-4 /HPF (0-4) Urine Squamous Epithelial Cells Few /LPF Urine Transitional Epithelial Cells Few /LPF Urine Bacteria 0 /HPF (0-FEW) Urine Mucus Mod /LPF Urine Opiates Screen Neg (NEG) Urine Methadone Screen Neg (NEG) Urine Barbiturates Neg (NEG) Urine Phencyclidine Screen Neg (NEG) Urine Amphetamine/Methamphetamine Neg (NEG) Urine Benzodiazepines Screen Neg (NEG) Urine Cocaine Screen Neg (NEG) Urine Cannabinoids Screen Pos (NEG) Urine Ethyl Alcohol Neg (NEG) White Blood Count 27.8 x10^3/uL (4.0-11.0) 18.4 x10^3/uL (4.0-11.0) Red Blood Count 4.73 x10^6/uL (4.30-5.70) 4.03 x10^6/uL (4.30-5.70) Hemoglobin 14.6 g/dL (13.0-17.5) 12.7 g/dL (13.0-17.5) Hematocrit 42.7 % (39.0-53.0) 36.3 % (39.0-53.0) Mean Corpuscular Volume 90 fL (79-100) 90 fL (79-100) Mean Corpuscular Hemoglobin 31 pg (25-35) 32 pg (25-35) Mean Corpuscular Hemoglobin Concent 34 g/dL (31-37) 35 g/dL (31-37) Red Cell Distribution Width 12.6 % (11.5-14.5) 13.0 % (11.5-14.5) Platelet Count 433 x10^3/uL (140-400) 371 x10^3/uL (140-400) Neutrophils (%) (Auto) 86 % (31-73) 85 % (31-73) Lymphocytes (%) (Auto) 5 % (24-48) 6 % (24-48) Monocytes (%) (Auto) 8 % (0-9) 9 % (0-9) Eosinophils (%) (Auto) 0 % (0-3) 0 % (0-3) Basophils (%) (Auto) 0 % (0-3) 0 % (0-3) Neutrophils # (Auto) 24.0 x10^3uL (1.8-7.7) 15.6 x10^3uL (1.8-7.7) Lymphocytes # (Auto) 1.5 x10^3/uL (1.0-4.8) 1.2 x10^3/uL (1.0-4.8) Monocytes # (Auto) 2.3 x10^3/uL (0.0-1.1) 1.6 x10^3/uL (0.0-1.1) Eosinophils # (Auto) 0.0 x10^3/uL (0.0-0.7) 0.0 x10^3/uL (0.0-0.7) Basophils # (Auto) 0.0 x10^3/uL (0.0-0.2) 0.0 x10^3/uL (0.0-0.2) Segmented Neutrophils % 89 % (35-66) Lymphocytes % 2 % (24-48) Monocytes % 9 % (0-10) Toxic Granulation Slight Platelet Estimate Increased (ADEQUATE) Platelet Clumps, EDTA Present Large Platelets Occ Giant Platelets Occ Ovalocytes Occ Crenated Cell Present Sodium Level 135 mmol/L (136-145) 138 mmol/L (136-145) Potassium Level 3.4 mmol/L (3.5-5.1) 3.1 mmol/L (3.5-5.1) Chloride Level 95 mmol/L (98-107) 98 mmol/L (98-107) Carbon Dioxide Level 31 mmol/L (21-32) 27 mmol/L (21-32) Anion Gap 9 (6-14) 13 (6-14) Blood Urea Nitrogen 8 mg/dL (8-26) 8 mg/dL (8-26) Creatinine 1.0 mg/dL (0.7-1.3) 0.8 mg/dL (0.7-1.3) Estimated GFR (Cockcroft-Gault) 82.8 107.1 BUN/Creatinine Ratio 8 (6-20) Glucose Level 137 mg/dL (70-99) 66 mg/dL (70-99) Calcium Level 8.5 mg/dL (8.5-10.1) 8.5 mg/dL (8.5-10.1) Total Bilirubin 0.8 mg/dL (0.2-1.0) Aspartate Amino Transf (AST/SGOT) 30 U/L (15-37) Alanine Aminotransferase (ALT/SGPT) 27 U/L (16-63) Alkaline Phosphatase 83 U/L (46-116) Total Protein 7.9 g/dL (6.4-8.2) Albumin 3.0 g/dL (3.4-5.0) Albumin/Globulin Ratio 0.6 (1.0-1.7) Lipase 125 U/L (73-393) Lactic Acid Level 0.8 mmol/L (0.4-2.0) Test 11/28/16 09:45 Prothrombin Time 14.9 SEC (11.7-14.0) Prothromb Time International Ratio 1.2 (0.8-1.1) Activated Partial Thromboplast Time 30 SEC (24-38) Laboratory Tests Test 11/27/16 13:45 11/27/16 14:15 11/28/16 00:02 11/28/16 04:30 Urine Collection Type Unknown Urine Color [place] Urine Clarity Clear Urine pH 6.0 Urine Specific [place] 1.015 Urine Protein 30 mg/dL (NEG-TRACE) Urine Glucose (UA) Negative mg/dL (NEG) Urine Ketones (Stick) >=80 mg/dL (NEG) Urine Blood Negative (NEG) Urine Nitrite Negative (NEG) Urine Bilirubin Negative (NEG) Urine Urobilinogen Dipstick 0.2 mg/dL (0.2 mg/dL) Urine Leukocyte Esterase Small (NEG) Urine RBC 1-2 /HPF (0-2) Urine WBC 1-4 /HPF (0-4) Urine Squamous Epithelial Cells Few /LPF Urine Transitional Epithelial Cells Few /LPF Urine Bacteria 0 /HPF (0-FEW) Urine Mucus Mod /LPF Urine Opiates Screen Neg (NEG) Urine Methadone Screen Neg (NEG) Urine Barbiturates Neg (NEG) Urine Phencyclidine Screen Neg (NEG) Urine Amphetamine/Methamphetamine Neg (NEG) Urine Benzodiazepines Screen Neg (NEG) Urine Cocaine Screen Neg (NEG) Urine Cannabinoids Screen Pos (NEG) Urine Ethyl Alcohol Neg (NEG) White Blood Count 27.8 x10^3/uL (4.0-11.0) 18.4 x10^3/uL (4.0-11.0) Red Blood Count 4.73 x10^6/uL (4.30-5.70) 4.03 x10^6/uL (4.30-5.70) Hemoglobin 14.6 g/dL (13.0-17.5) 12.7 g/dL (13.0-17.5) Hematocrit 42.7 % (39.0-53.0) 36.3 % (39.0-53.0) Mean Corpuscular Volume 90 fL (79-100) 90 fL (79-100) Mean Corpuscular Hemoglobin 31 pg (25-35) 32 pg (25-35) Mean Corpuscular Hemoglobin Concent 34 g/dL (31-37) 35 g/dL (31-37) Red Cell Distribution Width 12.6 % (11.5-14.5) 13.0 % (11.5-14.5) Platelet Count 433 x10^3/uL (140-400) 371 x10^3/uL (140-400) Neutrophils (%) (Auto) 86 % (31-73) 85 % (31-73) Lymphocytes (%) (Auto) 5 % (24-48) 6 % (24-48) Monocytes (%) (Auto) 8 % (0-9) 9 % (0-9) Eosinophils (%) (Auto) 0 % (0-3) 0 % (0-3) Basophils (%) (Auto) 0 % (0-3) 0 % (0-3) Neutrophils # (Auto) 24.0 x10^3uL (1.8-7.7) 15.6 x10^3uL (1.8-7.7) Lymphocytes # (Auto) 1.5 x10^3/uL (1.0-4.8) 1.2 x10^3/uL (1.0-4.8) Monocytes # (Auto) 2.3 x10^3/uL (0.0-1.1) 1.6 x10^3/uL (0.0-1.1) Eosinophils # (Auto) 0.0 x10^3/uL (0.0-0.7) 0.0 x10^3/uL (0.0-0.7) Basophils # (Auto) 0.0 x10^3/uL (0.0-0.2) 0.0 x10^3/uL (0.0-0.2) Segmented Neutrophils % 89 % (35-66) Lymphocytes % 2 % (24-48) Monocytes % 9 % (0-10) Toxic Granulation Slight Platelet Estimate Increased (ADEQUATE) Platelet Clumps, EDTA Present Large Platelets Occ Giant Platelets Occ Ovalocytes Occ Crenated Cell Present Sodium Level 135 mmol/L (136-145) 138 mmol/L (136-145) Potassium Level 3.4 mmol/L (3.5-5.1) 3.1 mmol/L (3.5-5.1) Chloride Level 95 mmol/L (98-107) 98 mmol/L (98-107) Carbon Dioxide Level 31 mmol/L (21-32) 27 mmol/L (21-32) Anion Gap 9 (6-14) 13 (6-14) Blood Urea Nitrogen 8 mg/dL (8-26) 8 mg/dL (8-26) Creatinine 1.0 mg/dL (0.7-1.3) 0.8 mg/dL (0.7-1.3) Estimated GFR (Cockcroft-Gault) 82.8 107.1 BUN/Creatinine Ratio 8 (6-20) Glucose Level 137 mg/dL (70-99) 66 mg/dL (70-99) Calcium Level 8.5 mg/dL (8.5-10.1) 8.5 mg/dL (8.5-10.1) Total Bilirubin 0.8 mg/dL (0.2-1.0) Aspartate Amino Transf (AST/SGOT) 30 U/L (15-37) Alanine Aminotransferase (ALT/SGPT) 27 U/L (16-63) Alkaline Phosphatase 83 U/L (46-116) Total Protein 7.9 g/dL (6.4-8.2) Albumin 3.0 g/dL (3.4-5.0) Albumin/Globulin Ratio 0.6 (1.0-1.7) Lipase 125 U/L (73-393) Lactic Acid Level 0.8 mmol/L (0.4-2.0) Test 11/28/16 09:45 Prothrombin Time 14.9 SEC (11.7-14.0) Prothromb Time International Ratio 1.2 (0.8-1.1) Activated Partial Thromboplast Time 30 SEC (24-38) Medications Current Medications Sodium Chloride 1,000 ml @ 1,000 mls/hr Q1H IV Last administered on 11/27/16 14:04; Start 11/27/16 at 14:04; Stop 11/27/16 at 15:03; Status DC Ondansetron HCl (Zofran) 4 mg 1X ONCE IV Last administered on 11/27/16 14:24 ; Start 11/27/16 at 14:15; Stop 11/27/16 at 14:16; Status DC Fentanyl Citrate (Fentanyl 2ml Vial) 25 mcg PRN Q15MIN PRN IV PAIN GREATER THAN 3/10 Last administered on 11/27/16 17:30; Start 11/27/16 at 15:15; Stop at 15:14 Iohexol (Omnipaque 300 Mg/ml) 75 ml 1X ONCE IV Last administered on 11/27/16 15:26; Start 11/27/16 at 15:30; Stop 11/27/16 at 15:31; Status DC Info (Do NOT chart on this entry -- for MONITORING) 1 each PRN DAILY PRN MC SEE COMMENTS; Start 11/27/16 at 15:30; Stop 11/29/16 at 15:29 Piperacillin Sod/ Tazobactam Sod (Zosyn Per Pharmacy) 1 each PRN DAILY PRN MC SEE COMMENTS; Start 11/27/16 at 17:00 Piperacillin Sod/ Tazobactam Sod 3.375 gm/Sodium Chloride 50 ml @ 100 mls/hr 1X ONCE IV Last administered on 11/27/16 17:30; Start 11/27/16 at 17:00; Stop 11/27/16 at 17:29; Status DC Piperacillin Sod/ Tazobactam Sod 3.375 gm/Sodium Chloride 50 ml @ 100 mls/hr Q6HRS IV Last administered on 11/28/16 06:20; Start 11/28/16 at 00:00 Ondansetron HCl (Zofran) 4 mg PRN Q6HRS PRN IV NAUSEA/VOMITING Last administered on 11/28/16 08:37; Start 11/27/16 at 21:00 Sodium Chloride 1,000 ml @ 75 mls/hr [id number] IV Last administered on 10:21; Start 11/27/16 at 21:00 Morphine Sulfate 2 mg PRN Q2HR PRN IV PAIN Last administered on 11/28/16 10:55 ; Start 11/27/16 at 21:00 Al Hydroxide/Mg Hydroxide (Mylanta Plus Xs) 30 ml PRN Q6HRS PRN PO HEARTBURN / GAS Last administered on 11/27/16 21:41; Start 11/27/16 at 21:00 Zolpidem Tartrate (Ambien) 5 mg PRN QHS PRN PO INSOMNIA Last administered on 21:45; Start 11/27/16 at 21:00 Pantoprazole Sodium (Protonix) 40 mg DAILYAC PO ; Start 11/28/16 at 07:30 Acetaminophen (Tylenol) 650 mg PRN Q6HRS PRN PO FEVER > 100.5'F Last administered on 11/27/16 21:45; Start 11/27/16 at 21:00 Ondansetron HCl (Zofran) 4 mg PRN Q8HRS PRN IV NAUSEA/VOMITING; Start 11/27/16 at 21:00; Stop 11/28/16 at 20:59 Morphine Sulfate 4 mg PRN Q2HR PRN IV PAIN; Start 11/27/16 at 21:00; Stop 11/28 at 20:59 Fluconazole/ Sodium Chloride 200 ml @ 100 mls/hr Q24H IV Last administered on 11/27/16 21:45; Start 11/27/16 at 21:30 Dextrose/Sodium Chloride 1,000 ml @ 100 mls/hr 1X ONCE IV ; Start 11/27/16 at 21:00; Stop 11/28/16 at 06:59; Status DC Potassium Chloride 100 ml @ 100 mls/hr Q1H IV Last administered on 11/28/16 10:22; Start 11/28/16 at 10:00; Stop 11/28/16 at 13:59 Active Scripts Active Reported Wellbutrin (Bupropion Hcl) 100 Mg Tablet 150 Mg PO DAILY Vitals/I & O Vital Sign - Last 24 Hours 11/27/16 11/27/16 11/27/16 11/27/16 13:45 14:41 15:11 15:38 Temp 98.3 98.3 Pulse 123 90 96 Resp 13 22 23 B/P (MAP) 135/75 (95) 136/79 (98) 134/72 (92) Pulse Ox 96 95 96 O2 Delivery Room Air Room Air Room Air 11/27/16 11/27/16 11/27/16 11/27/16 15:41 16:11 16:20 16:41 Pulse 104 94 110 Resp 21 21 40 B/P (MAP) 142/75 (97) 140/73 (95) 144/67 (92) Pulse Ox 99 97 99 O2 Delivery Room Air 11/27/16 11/27/16 11/27/16 11/27/16 17:11 17:30 17:41 18:28 Temp 97.7 97.7 Pulse 106 96 80 Resp 14 16 18 B/P (MAP) 128/75 (92) 135/72 (93) 131/65 (87) Pulse Ox 95 94 95 O2 Delivery Room Air Room Air 11/27/16 11/27/16 11/27/16 11/27/16 18:28 19:00 20:00 21:44 Temp 97.7 100.6 97.7 100.6 Pulse 80 89 Resp 18 18 16 B/P (MAP) 131/65 (87) 139/72 (94) Pulse Ox 95 95 95 O2 Delivery Room Air Room Air Room Air 11/27/16 11/27/16 11/28/1611/17 22:14 23:00 02:23 03:00 Temp 98.4 97.7 98.4 97.7 Pulse 108 105 Resp 18 18 B/P (MAP) 140/74 (96) 127/66 (86) Pulse Ox 95 93 97 O2 Delivery Room Air Room Air Room Air 11/28/16 11/28/16 11/28/16 11/28/16 08:00 08:38 09:08 10:55 Resp 16 16 16 O2 Delivery Room Air Room Air Room Air Room Air Intake and Output 11/27/16 11/27/16 11/28/16 15:00 23:00 07:00 Intake Total 1170 ml 0 ml Balance 1170 ml 0 ml SHIRA TURK MD Nov 28, 2016 11:58
[2016-11-28] MEDS ORDERED: fentaNYL PF VIAL 250 MCG/5 ML VIAL ONE (12:40)
[2016-11-28] MEDS ORDERED: NALOXONE 0.4 MG/ML VIAL. ONE (12:40)
[2016-11-28] MEDS ORDERED: MIDAZOLAM HCL/PF 5 MG/5 ML VIAL. ONE (12:40)
[2016-11-28] MEDS ORDERED: FLUMAZENIL 0.5 MG/5 ML VIAL. IV ONE (12:40)
[2016-11-28] MEDS ORDERED: LIDOCAINE 1% / SOD BICARB 8.4% 20 ML VIAL. IJ ONE ×2 (12:40→13:00)
[2016-11-28] MEDS ORDERED: MIDAZOLAM HCL/PF 5 MG/5 ML VIAL. IV ONE (13:00)
[2016-11-28] MEDS ORDERED: fentaNYL PF VIAL 250 MCG/5 ML VIAL IV ONE (13:00)
--- NOTE | 2016-11-28 13:56 | RAD ---
CT-guided change of left lower quadrant pelvic abscess 11/28/2016 Indication: Left lower quadrant abscess Discussion: The risks and benefits of the procedure discussed the patient. Informed consent was obtained. The patient was brought to the CT scanner and placed in supine position. A timeout procedure was performed. Left lower quadrant was prepped and draped using maximum sterile barrier technique. CT imaging was performed confirming presence of a large abscess in the left lower quadrant. Once an appropriate site for skin and she was selected 1% lidocaine without epinephrine was administered to the skin and subcutaneous tissues. Under intermittent CT guidance 17-gauge needle was advanced into this collection. Through this needle a guidewire was advanced into the collection, which was confirmed with CT. Over this wire following dilatation a locking 10 Czech pigtail drainage catheter was advanced into the collection.. Purulent material was aspirated. A sample this fluid was sent for Gram stain and culture. The catheter secured in place and a sterile dressing was applied. No immediate competitions were identified. The procedure was performed conscious sedation including continuous cardiopulmonary monitoring via a dedicated sedation nurse. Sedation time: 30 minutes Impression: Successful CT-guided drainage of left lower quadrant abscess PQRS Compliance Statement: One or more of the following individualized dose reduction techniques were utilized for this examination: 1. Automated exposure control 2. Adjustment of the mA and/or kV according to patient size 3. Use of iterative reconstruction technique
--- NOTE | 2016-11-28 16:00 | PDOC ---
Infectious Disease Note ROS ROS Vital Sign Vital Signs Vital Signs Date Time Temp Pulse Resp B/P (MAP) Pulse Ox O2 Delivery O2 Flow Rate FiO2 11/28/16 13:07 110 16 95 Room Air 11/28/16 13:00 2.0 11/28/16 11:00 97.5 127/72 (90) 97.5 Labs Lab Laboratory Tests Test 11/28/16 00:02 11/28/16 04:30 11/28/16 09:45 Lactic Acid Level 0.8 mmol/L (0.4-2.0) White Blood Count 18.4 x10^3/uL (4.0-11.0) Red Blood Count 4.03 x10^6/uL (4.30-5.70) Hemoglobin 12.7 g/dL (13.0-17.5) Hematocrit 36.3 % (39.0-53.0) Mean Corpuscular Volume 90 fL (79-100) Mean Corpuscular Hemoglobin 32 pg (25-35) Mean Corpuscular Hemoglobin Concent 35 g/dL (31-37) Red Cell Distribution Width 13.0 % (11.5-14.5) Platelet Count 371 x10^3/uL (140-400) Neutrophils (%) (Auto) 85 % (31-73) Lymphocytes (%) (Auto) 6 % (24-48) Monocytes (%) (Auto) 9 % (0-9) Eosinophils (%) (Auto) 0 % (0-3) Basophils (%) (Auto) 0 % (0-3) Neutrophils # (Auto) 15.6 x10^3uL (1.8-7.7) Lymphocytes # (Auto) 1.2 x10^3/uL (1.0-4.8) Monocytes # (Auto) 1.6 x10^3/uL (0.0-1.1) Eosinophils # (Auto) 0.0 x10^3/uL (0.0-0.7) Basophils # (Auto) 0.0 x10^3/uL (0.0-0.2) Sodium Level 138 mmol/L (136-145) Potassium Level 3.1 mmol/L (3.5-5.1) Chloride Level 98 mmol/L (98-107) Carbon Dioxide Level 27 mmol/L (21-32) Anion Gap 13 (6-14) Blood Urea Nitrogen 8 mg/dL (8-26) Creatinine 0.8 mg/dL (0.7-1.3) Estimated GFR (Cockcroft-Gault) 107.1 Glucose Level 66 mg/dL (70-99) Calcium Level 8.5 mg/dL (8.5-10.1) Prothrombin Time 14.9 SEC (11.7-14.0) Prothromb Time International Ratio 1.2 (0.8-1.1) Activated Partial Thromboplast Time 30 SEC (24-38) Objective Assessment Multiple pelvic abscesses s/p HERBERT drain, 11/28 Colitis Fever Leukocytosis Plan Plan of Care Zosyn and fluconazole recommended by (D/w ER 11/27) f/u cultures Monitor lab values and temp Thank you Attending Co-Sign Attending Co-Sign The patient was seen and interviewed as well as examined at the bedside. The chart was reviewed. The case was discussed. Agree with the plan of care. HUGO SHERIDAN APRN Nov 28, 2016 16:00 ERICA GARNETT MD Nov 28, 2016 16:03
[2016-11-28] MEDS: MORPHINE SULFATE 4 MG/ML DISP.SYRIN. IV PRN ×3 (17:46→20:42)
[2016-11-28] MEDS: MAG HYDROX/ALUMINUM HYD/SIMETH 30 ML ORAL.SUSP PO PRN (19:01)
[2016-11-28] MEDS: FLUCONAZOLE 400MG/200ML PREMIX 200 ML IV SCH (20:41)
[2016-11-29] MEDS: IV NORMAL SALINE 1000ML BAG 1,000 ML IV SCH ×2 (00:09→16:09)
[2016-11-29] MEDS: PIPERACILLIN/TAZOBACTAM 3.375 GM in IV NORMAL SALINE 50ML 50 ML IV SCH ×4 (00:09→18:00)
[2016-11-29] MEDS: MORPHINE SULFATE 4 MG/ML DISP.SYRIN. IV PRN ×2 (00:33→06:34)
--- NOTE | 2016-11-29 01:20 | CONS ---
DATE OF CONSULTATION: 11/27/2016 REFERRING PHYSICIAN: ____. REASON FOR CONSULTATION: Colitis with abscess. HISTORY OF PRESENT ILLNESS: This patient is a 41-year-old male with no significant past medical history, who about 2 weeks ago developed stomach flu like symptoms. He was seen at [facility] in [place], [place] where CT abdomen and pelvis reportedly revealed colitis. He was released on oral ciprofloxacin and metronidazole. About 2 days ago, he was starting to feel better. However, when he finished his antibiotics, the symptoms returned. He came up to [place] after learning that his father had . He presented to [facility] with worsening abdominal pain, nausea, vomiting and diarrhea. A repeat CT of the abdomen/pelvis revealed large air and fluid collection in the left lower abdomen and pelvis measuring approximately 12 cm in length x 5.5 cm compatible with an abscess and a smaller abscess measuring approximately 5.6 cm x 1.3 cm also seen as well as another measuring approximately 4 cm adjacent to the proximal sigmoid colon. He had an elevated white blood cell count of 27,800 and fever. He underwent a CT-guided drainage of left lower quadrant abscess by Interventional Radiology earlier today. Anaerobic-aerobic cultures are pending. Dr. Mcadams was notified earlier and had recommended Zosyn and fluconazole for antibiotic coverage. The patient is feeling better. He is having less pain. No further episodes of nausea, vomiting or diarrhea. No fever so far today. Denies aches, chills or sweats. He remains n.p.o. Denies dysuria, frequency or urgency. PAST MEDICAL HISTORY: No significant past medical history. PAST SURGICAL HISTORY: Vasectomy, tonsillectomy. FAMILY HISTORY: His father recently . He has a history of stroke, heart disease and heavy alcohol. SOCIAL HISTORY: He is a smoker. History of marijuana. Drinks alcohol on occasion. He is and has cats. 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 ALLERGIES: LATEX. MEDICATIONS: Zosyn, fluconazole. Other medications are available and have been reviewed on the JUN. REVIEW OF SYSTEMS: Per HPI, otherwise all other review of systems negative. PHYSICAL EXAMINATION: GENERAL: male, propped up in bed, in no apparent distress. VITAL SIGNS: Temperature is 97.5, T-max 100.6, blood pressure 127/72, heart rate 110, respiratory rate 16, pulse oximetry is 95% on room air, weight is 215 pounds. BMI 29. HEENT: Pupils equally round. Normal conjunctivae. Oral mucosa is pink and dry. NECK: Supple. LUNGS: Clear. HEART: Normal S1, S2. ABDOMEN: Bowel sounds are present, soft, nondistended. Left lower quadrant HERBERT with purulent drainage. Mildly tender. EXTREMITIES: No gross edema or cyanosis. SKIN: Without rash. NEUROLOGIC: Alert and oriented x 3. No focal deficits appreciated. LABORATORY DATA: Today's WBC 18.4, hemoglobin 12.7, platelet count 371,000. Potassium 3.1, sodium 138, creatinine 0.8, BUN 8, glucose 66, lactic acid 0.8, total bilirubin 0.8, AST 30, ALT 27, albumin 3.0, lipase 125. Urine toxicology positive for cannabinoids. Urinalysis unremarkable for infection. Urine culture and C. diff PCR pending. Abdominal/pelvis CT per HPI. IMPRESSION: 1. Multiple pelvic abscesses, status post HERBERT drain on ____ 11/28/2016. 2. Colitis. 3. Fever. 4. Leukocytosis. PLAN: Continue the Zosyn and fluconazole. We will follow up on the results of cultures and modify antibiotics accordingly. Monitor laboratory values and temperature. Thank you, ____ for asking us to participate in this patient's care. Should you have further questions or concerns, please call. The patient was seen and examined, and plan of care implemented by Dr. Erica Mcadams. ERICA MCADAMS MD DR: MARGO/ellen JOB#: [id number] / [id number]
[2016-11-29 03:00] VITALS: BP 123/76
[2016-11-29 05:15] LABS: BASO # 0.1 x10^3/uL (0.0-0.2); BASO % 1 % (0-3); EOS % 0 % (0-3); HEMATOCRIT 33.6 % (39.0-53.0); HEMOGLOBIN 11.7 g/dL (13.0-17.5); LYMPH # 1.5 x10^3/uL (1.0-4.8); LYMPH % 15 % (24-48); MEAN CORPUSCULAR HEMOGLOBIN 32 pg (25-35); MEAN CORPUSCULAR HGB CONC 35 g/dL (31-37); MEAN CORPUSCULAR VOLUME 91 fL (79-100); MONO % 9 % (0-9); NEUT % 75 % (31-73); PLATELET COUNT 341 x10^3/uL (140-400); RED BLOOD COUNT 3.68 x10^6/uL (4.30-5.70); RED CELL DISTRIBUTION WIDTH 12.6 % (11.5-14.5); WHITE BLOOD COUNT 9.9 x10^3/uL (4.0-11.0)
[2016-11-29 05:44] LABS: CALCIUM 7.7 mg/dL (8.5-10.1); CREATININE 0.9 mg/dL (0.7-1.3); GFR 93.5; POTASSIUM 3.6 mmol/L (3.5-5.1)
[2016-11-29] MEDS: PANTOPRAZOLE 40 MG TABLET.DR. PO SCH (06:28)
[2016-11-29 07:00] VITALS: BP 136/78
--- NOTE | 2016-11-29 10:36 | PDOC ---
Infectious Disease Note Subjective Subjective Feels good, better than when symptoms started a few weeks ago. Fever Tmax 100.6 ROS ROS GEN: Denies fevers, chills, sweats CV: Denies chest pain RESP: Denies shortness of air, cough GI: Denies n/v/d Vital Sign Vital Signs Vital Signs Date Time Temp Pulse Resp B/P (MAP) Pulse Ox O2 Delivery O2 Flow Rate FiO2 11/29/16 07:32 94 Room Air 2.0 11/29/16 07:00 97.9 69 18 136/78 (97) 97.9 Physical Exam PHYSICAL EXAM GENERAL: Propped up in bed, relaxed appearance LUNGS: Clear. HEART: Normal S1, S2. ABDOMEN: Nondistended, bowel sounds are present, soft, LLQ HERBERT - purulent drainage EXTREMITIES: No gross edema or cyanosis. SKIN: Without rash. NEUROLOGIC: Alert and oriented x 3. No focal deficits appreciated. Labs Lab Laboratory Tests Test 11/29/16 04:21 White Blood Count 9.9 x10^3/uL (4.0-11.0) Red Blood Count 3.68 x10^6/uL (4.30-5.70) Hemoglobin 11.7 g/dL (13.0-17.5) Hematocrit 33.6 % (39.0-53.0) Mean Corpuscular Volume 91 fL (79-100) Mean Corpuscular Hemoglobin 32 pg (25-35) Mean Corpuscular Hemoglobin Concent 35 g/dL (31-37) Red Cell Distribution Width 12.6 % (11.5-14.5) Platelet Count 341 x10^3/uL (140-400) Neutrophils (%) (Auto) 75 % (31-73) Lymphocytes (%) (Auto) 15 % (24-48) Monocytes (%) (Auto) 9 % (0-9) Eosinophils (%) (Auto) 0 % (0-3) Basophils (%) (Auto) 1 % (0-3) Neutrophils # (Auto) 7.4 x10^3uL (1.8-7.7) Lymphocytes # (Auto) 1.5 x10^3/uL (1.0-4.8) Monocytes # (Auto) 0.9 x10^3/uL (0.0-1.1) Eosinophils # (Auto) 0.0 x10^3/uL (0.0-0.7) Basophils # (Auto) 0.1 x10^3/uL (0.0-0.2) Sodium Level 139 mmol/L (136-145) Potassium Level 3.6 mmol/L (3.5-5.1) Chloride Level 104 mmol/L (98-107) Carbon Dioxide Level 29 mmol/L (21-32) Anion Gap 6 (6-14) Blood Urea Nitrogen 7 mg/dL (8-26) Creatinine 0.9 mg/dL (0.7-1.3) Estimated GFR (Cockcroft-Gault) 93.5 Glucose Level 81 mg/dL (70-99) Calcium Level 7.7 mg/dL (8.5-10.1) Objective Assessment Multiple pelvic abscesses s/p HERBERT drain, 11/28 Colitis Fever Leukocytosis, improved Plan Plan of Care Zosyn and fluconazole f/u cultures Monitor lab values and temp Patient seen and examined. Chart reviewed. Case discussed with [employer]. Agree with above plan HUGO SHERIDAN APRN Nov 29, 2016 10:36 VERN FRAZIER MD Nov 29, 2016 18:43
[2016-11-29 11:08] VITALS: BP 121/82
--- NOTE | 2016-11-29 11:44 | PDOC ---
SURGICAL PROGRESS NOTE Subjective Pt reports feeling 100% better, adrian PO well Vital Signs Vital Signs Date Time Temp Pulse Resp B/P (MAP) Pulse Ox O2 Delivery O2 Flow Rate FiO2 11/29/16 11:08 98.2 70 18 121/82 (95) 98 Room Air 98.2 11/29/16 07:32 2.0 I&O Intake and Output 11/29/16 07:00 Intake Total 3941 ml Output Total 530 ml Balance 3411 ml Intake Oral 1380 ml IV Total 2561 ml Output Drainage Total 530 ml General: Alert, Oriented X3, Cooperative, No acute distress Abdomen: Soft, No tenderness, Other (drain with purulent output) Labs Laboratory Tests Test 11/27/16 13:45 11/27/16 14:15 11/28/16 00:02 11/28/16 04:30 Urine Collection Type Unknown Urine Color Marion Urine Clarity Clear Urine pH 6.0 Urine Specific [place] 1.015 Urine Protein 30 mg/dL (NEG-TRACE) Urine Glucose (UA) Negative mg/dL (NEG) Urine Ketones (Stick) >=80 mg/dL (NEG) Urine Blood Negative (NEG) Urine Nitrite Negative (NEG) Urine Bilirubin Negative (NEG) Urine Urobilinogen Dipstick 0.2 mg/dL (0.2 mg/dL) Urine Leukocyte Esterase Small (NEG) Urine RBC 1-2 /HPF (0-2) Urine WBC 1-4 /HPF (0-4) Urine Squamous Epithelial Cells Few /LPF Urine Transitional Epithelial Cells Few /LPF Urine Bacteria 0 /HPF (0-FEW) Urine Mucus Mod /LPF Urine Opiates Screen Neg (NEG) Urine Methadone Screen Neg (NEG) Urine Barbiturates Neg (NEG) Urine Phencyclidine Screen Neg (NEG) Urine Amphetamine/Methamphetamine Neg (NEG) Urine Benzodiazepines Screen Neg (NEG) Urine Cocaine Screen Neg (NEG) Urine Cannabinoids Screen Pos (NEG) Urine Ethyl Alcohol Neg (NEG) White Blood Count 27.8 x10^3/uL (4.0-11.0) 18.4 x10^3/uL (4.0-11.0) Red Blood Count 4.73 x10^6/uL (4.30-5.70) 4.03 x10^6/uL (4.30-5.70) Hemoglobin 14.6 g/dL (13.0-17.5) 12.7 g/dL (13.0-17.5) Hematocrit 42.7 % (39.0-53.0) 36.3 % (39.0-53.0) Mean Corpuscular Volume 90 fL (79-100) 90 fL (79-100) Mean Corpuscular Hemoglobin 31 pg (25-35) 32 pg (25-35) Mean Corpuscular Hemoglobin Concent 34 g/dL (31-37) 35 g/dL (31-37) Red Cell Distribution Width 12.6 % (11.5-14.5) 13.0 % (11.5-14.5) Platelet Count 433 x10^3/uL (140-400) 371 x10^3/uL (140-400) Neutrophils (%) (Auto) 86 % (31-73) 85 % (31-73) Lymphocytes (%) (Auto) 5 % (24-48) 6 % (24-48) Monocytes (%) (Auto) 8 % (0-9) 9 % (0-9) Eosinophils (%) (Auto) 0 % (0-3) 0 % (0-3) Basophils (%) (Auto) 0 % (0-3) 0 % (0-3) Neutrophils # (Auto) 24.0 x10^3uL (1.8-7.7) 15.6 x10^3uL (1.8-7.7) Lymphocytes # (Auto) 1.5 x10^3/uL (1.0-4.8) 1.2 x10^3/uL (1.0-4.8) Monocytes # (Auto) 2.3 x10^3/uL (0.0-1.1) 1.6 x10^3/uL (0.0-1.1) Eosinophils # (Auto) 0.0 x10^3/uL (0.0-0.7) 0.0 x10^3/uL (0.0-0.7) Basophils # (Auto) 0.0 x10^3/uL (0.0-0.2) 0.0 x10^3/uL (0.0-0.2) Segmented Neutrophils % 89 % (35-66) Lymphocytes % 2 % (24-48) Monocytes % 9 % (0-10) Toxic Granulation Slight Platelet Estimate Increased (ADEQUATE) Platelet Clumps, EDTA Present Large Platelets Occ Giant Platelets Occ Ovalocytes Occ Crenated Cell Present Sodium Level 135 mmol/L (136-145) 138 mmol/L (136-145) Potassium Level 3.4 mmol/L (3.5-5.1) 3.1 mmol/L (3.5-5.1) Chloride Level 95 mmol/L (98-107) 98 mmol/L (98-107) Carbon Dioxide Level 31 mmol/L (21-32) 27 mmol/L (21-32) Anion Gap 9 (6-14) 13 (6-14) Blood Urea Nitrogen 8 mg/dL (8-26) 8 mg/dL (8-26) Creatinine 1.0 mg/dL (0.7-1.3) 0.8 mg/dL (0.7-1.3) Estimated GFR (Cockcroft-Gault) 82.8 107.1 BUN/Creatinine Ratio 8 (6-20) Glucose Level 137 mg/dL (70-99) 66 mg/dL (70-99) Calcium Level 8.5 mg/dL (8.5-10.1) 8.5 mg/dL (8.5-10.1) Total Bilirubin 0.8 mg/dL (0.2-1.0) Aspartate Amino Transf (AST/SGOT) 30 U/L (15-37) Alanine Aminotransferase (ALT/SGPT) 27 U/L (16-63) Alkaline Phosphatase 83 U/L (46-116) Total Protein 7.9 g/dL (6.4-8.2) Albumin 3.0 g/dL (3.4-5.0) Albumin/Globulin Ratio 0.6 (1.0-1.7) Lipase 125 U/L (73-393) Lactic Acid Level 0.8 mmol/L (0.4-2.0) Clostridium difficile Toxin (PCR) Negative (Negative) Test 11/28/16 09:45 11/29/16 04:21 Prothrombin Time 14.9 SEC (11.7-14.0) Prothromb Time International Ratio 1.2 (0.8-1.1) Activated Partial Thromboplast Time 30 SEC (24-38) White Blood Count 9.9 x10^3/uL (4.0-11.0) Red Blood Count 3.68 x10^6/uL (4.30-5.70) Hemoglobin 11.7 g/dL (13.0-17.5) Hematocrit 33.6 % (39.0-53.0) Mean Corpuscular Volume 91 fL (79-100) Mean Corpuscular Hemoglobin 32 pg (25-35) Mean Corpuscular Hemoglobin Concent 35 g/dL (31-37) Red Cell Distribution Width 12.6 % (11.5-14.5) Platelet Count 341 x10^3/uL (140-400) Neutrophils (%) (Auto) 75 % (31-73) Lymphocytes (%) (Auto) 15 % (24-48) Monocytes (%) (Auto) 9 % (0-9) Eosinophils (%) (Auto) 0 % (0-3) Basophils (%) (Auto) 1 % (0-3) Neutrophils # (Auto) 7.4 x10^3uL (1.8-7.7) Lymphocytes # (Auto) 1.5 x10^3/uL (1.0-4.8) Monocytes # (Auto) 0.9 x10^3/uL (0.0-1.1) Eosinophils # (Auto) 0.0 x10^3/uL (0.0-0.7) Basophils # (Auto) 0.1 x10^3/uL (0.0-0.2) Sodium Level 139 mmol/L (136-145) Potassium Level 3.6 mmol/L (3.5-5.1) Chloride Level 104 mmol/L (98-107) Carbon Dioxide Level 29 mmol/L (21-32) Anion Gap 6 (6-14) Blood Urea Nitrogen 7 mg/dL (8-26) Creatinine 0.9 mg/dL (0.7-1.3) Estimated GFR (Cockcroft-Gault) 93.5 Glucose Level 81 mg/dL (70-99) Calcium Level 7.7 mg/dL (8.5-10.1) Laboratory Tests Test 11/29/16 04:21 White Blood Count 9.9 x10^3/uL (4.0-11.0) Red Blood Count 3.68 x10^6/uL (4.30-5.70) Hemoglobin 11.7 g/dL (13.0-17.5) Hematocrit 33.6 % (39.0-53.0) Mean Corpuscular Volume 91 fL (79-100) Mean Corpuscular Hemoglobin 32 pg (25-35) Mean Corpuscular Hemoglobin Concent 35 g/dL (31-37) Red Cell Distribution Width 12.6 % (11.5-14.5) Platelet Count 341 x10^3/uL (140-400) Neutrophils (%) (Auto) 75 % (31-73) Lymphocytes (%) (Auto) 15 % (24-48) Monocytes (%) (Auto) 9 % (0-9) Eosinophils (%) (Auto) 0 % (0-3) Basophils (%) (Auto) 1 % (0-3) Neutrophils # (Auto) 7.4 x10^3uL (1.8-7.7) Lymphocytes # (Auto) 1.5 x10^3/uL (1.0-4.8) Monocytes # (Auto) 0.9 x10^3/uL (0.0-1.1) Eosinophils # (Auto) 0.0 x10^3/uL (0.0-0.7) Basophils # (Auto) 0.1 x10^3/uL (0.0-0.2) Sodium Level 139 mmol/L (136-145) Potassium Level 3.6 mmol/L (3.5-5.1) Chloride Level 104 mmol/L (98-107) Carbon Dioxide Level 29 mmol/L (21-32) Anion Gap 6 (6-14) Blood Urea Nitrogen 7 mg/dL (8-26) Creatinine 0.9 mg/dL (0.7-1.3) Estimated GFR (Cockcroft-Gault) 93.5 Glucose Level 81 mg/dL (70-99) Calcium Level 7.7 mg/dL (8.5-10.1) Problem List abd abscess cont abx and drain ADAT elective colonoscopy Problems: GALILEA VILLAGRAN MD Nov 29, 2016 11:44
--- NOTE | 2016-11-29 12:18 | PDOC ---
PROGRESS NOTES Chief Complaint Chief Complaint CC abd pain with sigmoid colitis and abd/pelvis abscess colitis sepsis History of Present Illness History of Present Illness 41 y/o M with CC of abd pain pt was greeted at the bedside AO3 pt states that he is feeling much better pt has an abd drain in place and appears to be draining a pus-like material WBC has normalized at 9.9 Vitals Vitals Vital Signs Date Time Temp Pulse Resp B/P (MAP) Pulse Ox O2 Delivery O2 Flow Rate FiO2 11/29/16 11:08 98.2 70 18 121/82 (95) 98 Room Air 98.2 11/29/16 07:32 2.0 Physical Exam General: Alert, Oriented X3, Cooperative, No acute distress Heart: Regular rate, Normal S1, Normal S2, No murmurs Lungs: Clear, Other Abdomen: Soft, No tenderness, Other (drain with purulent output) Extremities: No clubbing, No cyanosis Skin: No rashes, No breakdown Labs LABS Laboratory Tests Test 11/29/16 04:21 White Blood Count 9.9 x10^3/uL (4.0-11.0) Red Blood Count 3.68 x10^6/uL (4.30-5.70) Hemoglobin 11.7 g/dL (13.0-17.5) Hematocrit 33.6 % (39.0-53.0) Mean Corpuscular Volume 91 fL (79-100) Mean Corpuscular Hemoglobin 32 pg (25-35) Mean Corpuscular Hemoglobin Concent 35 g/dL (31-37) Red Cell Distribution Width 12.6 % (11.5-14.5) Platelet Count 341 x10^3/uL (140-400) Neutrophils (%) (Auto) 75 % (31-73) Lymphocytes (%) (Auto) 15 % (24-48) Monocytes (%) (Auto) 9 % (0-9) Eosinophils (%) (Auto) 0 % (0-3) Basophils (%) (Auto) 1 % (0-3) Neutrophils # (Auto) 7.4 x10^3uL (1.8-7.7) Lymphocytes # (Auto) 1.5 x10^3/uL (1.0-4.8) Monocytes # (Auto) 0.9 x10^3/uL (0.0-1.1) Eosinophils # (Auto) 0.0 x10^3/uL (0.0-0.7) Basophils # (Auto) 0.1 x10^3/uL (0.0-0.2) Sodium Level 139 mmol/L (136-145) Potassium Level 3.6 mmol/L (3.5-5.1) Chloride Level 104 mmol/L (98-107) Carbon Dioxide Level 29 mmol/L (21-32) Anion Gap 6 (6-14) Blood Urea Nitrogen 7 mg/dL (8-26) Creatinine 0.9 mg/dL (0.7-1.3) Estimated GFR (Cockcroft-Gault) 93.5 Glucose Level 81 mg/dL (70-99) Calcium Level 7.7 mg/dL (8.5-10.1) Review of Systems Review of Systems pt complains of no NVD pt complains of no weakness Assessment and Plan Assessmemt and Plan CC abd pain with sigmoid colitis and abd/pelvis abscess colitis sepsis PLAN -cont abx (zosyn and fluconazole) -cont ivf -daily labs -advanced diet if tolerated -dvt proph -appreciate subspecialist input (IR/GI) Problems: Comment Review of Relevant I have reviewed the following items bernardo (where applicable) has been applied. Labs Laboratory Tests Test 11/27/16 13:45 11/27/16 14:15 11/28/16 00:02 11/28/16 04:30 Urine Collection Type Unknown Urine Color [place] Urine Clarity Clear Urine pH 6.0 Urine Specific [place] 1.015 Urine Protein 30 mg/dL (NEG-TRACE) Urine Glucose (UA) Negative mg/dL (NEG) Urine Ketones (Stick) >=80 mg/dL (NEG) Urine Blood Negative (NEG) Urine Nitrite Negative (NEG) Urine Bilirubin Negative (NEG) Urine Urobilinogen Dipstick 0.2 mg/dL (0.2 mg/dL) Urine Leukocyte Esterase Small (NEG) Urine RBC 1-2 /HPF (0-2) Urine WBC 1-4 /HPF (0-4) Urine Squamous Epithelial Cells Few /LPF Urine Transitional Epithelial Cells Few /LPF Urine Bacteria 0 /HPF (0-FEW) Urine Mucus Mod /LPF Urine Opiates Screen Neg (NEG) Urine Methadone Screen Neg (NEG) Urine Barbiturates Neg (NEG) Urine Phencyclidine Screen Neg (NEG) Urine Amphetamine/Methamphetamine Neg (NEG) Urine Benzodiazepines Screen Neg (NEG) Urine Cocaine Screen Neg (NEG) Urine Cannabinoids Screen Pos (NEG) Urine Ethyl Alcohol Neg (NEG) White Blood Count 27.8 x10^3/uL (4.0-11.0) 18.4 x10^3/uL (4.0-11.0) Red Blood Count 4.73 x10^6/uL (4.30-5.70) 4.03 x10^6/uL (4.30-5.70) Hemoglobin 14.6 g/dL (13.0-17.5) 12.7 g/dL (13.0-17.5) Hematocrit 42.7 % (39.0-53.0) 36.3 % (39.0-53.0) Mean Corpuscular Volume 90 fL (79-100) 90 fL (79-100) Mean Corpuscular Hemoglobin 31 pg (25-35) 32 pg (25-35) Mean Corpuscular Hemoglobin Concent 34 g/dL (31-37) 35 g/dL (31-37) Red Cell Distribution Width 12.6 % (11.5-14.5) 13.0 % (11.5-14.5) Platelet Count 433 x10^3/uL (140-400) 371 x10^3/uL (140-400) Neutrophils (%) (Auto) 86 % (31-73) 85 % (31-73) Lymphocytes (%) (Auto) 5 % (24-48) 6 % (24-48) Monocytes (%) (Auto) 8 % (0-9) 9 % (0-9) Eosinophils (%) (Auto) 0 % (0-3) 0 % (0-3) Basophils (%) (Auto) 0 % (0-3) 0 % (0-3) Neutrophils # (Auto) 24.0 x10^3uL (1.8-7.7) 15.6 x10^3uL (1.8-7.7) Lymphocytes # (Auto) 1.5 x10^3/uL (1.0-4.8) 1.2 x10^3/uL (1.0-4.8) Monocytes # (Auto) 2.3 x10^3/uL (0.0-1.1) 1.6 x10^3/uL (0.0-1.1) Eosinophils # (Auto) 0.0 x10^3/uL (0.0-0.7) 0.0 x10^3/uL (0.0-0.7) Basophils # (Auto) 0.0 x10^3/uL (0.0-0.2) 0.0 x10^3/uL (0.0-0.2) Segmented Neutrophils % 89 % (35-66) Lymphocytes % 2 % (24-48) Monocytes % 9 % (0-10) Toxic Granulation Slight Platelet Estimate Increased (ADEQUATE) Platelet Clumps, EDTA Present Large Platelets Occ Giant Platelets Occ Ovalocytes Occ Crenated Cell Present Sodium Level 135 mmol/L (136-145) 138 mmol/L (136-145) Potassium Level 3.4 mmol/L (3.5-5.1) 3.1 mmol/L (3.5-5.1) Chloride Level 95 mmol/L (98-107) 98 mmol/L (98-107) Carbon Dioxide Level 31 mmol/L (21-32) 27 mmol/L (21-32) Anion Gap 9 (6-14) 13 (6-14) Blood Urea Nitrogen 8 mg/dL (8-26) 8 mg/dL (8-26) Creatinine 1.0 mg/dL (0.7-1.3) 0.8 mg/dL (0.7-1.3) Estimated GFR (Cockcroft-Gault) 82.8 107.1 BUN/Creatinine Ratio 8 (6-20) Glucose Level 137 mg/dL (70-99) 66 mg/dL (70-99) Calcium Level 8.5 mg/dL (8.5-10.1) 8.5 mg/dL (8.5-10.1) Total Bilirubin 0.8 mg/dL (0.2-1.0) Aspartate Amino Transf (AST/SGOT) 30 U/L (15-37) Alanine Aminotransferase (ALT/SGPT) 27 U/L (16-63) Alkaline Phosphatase 83 U/L (46-116) Total Protein 7.9 g/dL (6.4-8.2) Albumin 3.0 g/dL (3.4-5.0) Albumin/Globulin Ratio 0.6 (1.0-1.7) Lipase 125 U/L (73-393) Lactic Acid Level 0.8 mmol/L (0.4-2.0) Clostridium difficile Toxin (PCR) Negative (Negative) Test 11/28/16 09:45 11/29/16 04:21 Prothrombin Time 14.9 SEC (11.7-14.0) Prothromb Time International Ratio 1.2 (0.8-1.1) Activated Partial Thromboplast Time 30 SEC (24-38) White Blood Count 9.9 x10^3/uL (4.0-11.0) Red Blood Count 3.68 x10^6/uL (4.30-5.70) Hemoglobin 11.7 g/dL (13.0-17.5) Hematocrit 33.6 % (39.0-53.0) Mean Corpuscular Volume 91 fL (79-100) Mean Corpuscular Hemoglobin 32 pg (25-35) Mean Corpuscular Hemoglobin Concent 35 g/dL (31-37) Red Cell Distribution Width 12.6 % (11.5-14.5) Platelet Count 341 x10^3/uL (140-400) Neutrophils (%) (Auto) 75 % (31-73) Lymphocytes (%) (Auto) 15 % (24-48) Monocytes (%) (Auto) 9 % (0-9) Eosinophils (%) (Auto) 0 % (0-3) Basophils (%) (Auto) 1 % (0-3) Neutrophils # (Auto) 7.4 x10^3uL (1.8-7.7) Lymphocytes # (Auto) 1.5 x10^3/uL (1.0-4.8) Monocytes # (Auto) 0.9 x10^3/uL (0.0-1.1) Eosinophils # (Auto) 0.0 x10^3/uL (0.0-0.7) Basophils # (Auto) 0.1 x10^3/uL (0.0-0.2) Sodium Level 139 mmol/L (136-145) Potassium Level 3.6 mmol/L (3.5-5.1) Chloride Level 104 mmol/L (98-107) Carbon Dioxide Level 29 mmol/L (21-32) Anion Gap 6 (6-14) Blood Urea Nitrogen 7 mg/dL (8-26) Creatinine 0.9 mg/dL (0.7-1.3) Estimated GFR (Cockcroft-Gault) 93.5 Glucose Level 81 mg/dL (70-99) Calcium Level 7.7 mg/dL (8.5-10.1) Laboratory Tests Test 11/29/16 04:21 White Blood Count 9.9 x10^3/uL (4.0-11.0) Red Blood Count 3.68 x10^6/uL (4.30-5.70) Hemoglobin 11.7 g/dL (13.0-17.5) Hematocrit 33.6 % (39.0-53.0) Mean Corpuscular Volume 91 fL (79-100) Mean Corpuscular Hemoglobin 32 pg (25-35) Mean Corpuscular Hemoglobin Concent 35 g/dL (31-37) Red Cell Distribution Width 12.6 % (11.5-14.5) Platelet Count 341 x10^3/uL (140-400) Neutrophils (%) (Auto) 75 % (31-73) Lymphocytes (%) (Auto) 15 % (24-48) Monocytes (%) (Auto) 9 % (0-9) Eosinophils (%) (Auto) 0 % (0-3) Basophils (%) (Auto) 1 % (0-3) Neutrophils # (Auto) 7.4 x10^3uL (1.8-7.7) Lymphocytes # (Auto) 1.5 x10^3/uL (1.0-4.8) Monocytes # (Auto) 0.9 x10^3/uL (0.0-1.1) Eosinophils # (Auto) 0.0 x10^3/uL (0.0-0.7) Basophils # (Auto) 0.1 x10^3/uL (0.0-0.2) Sodium Level 139 mmol/L (136-145) Potassium Level 3.6 mmol/L (3.5-5.1) Chloride Level 104 mmol/L (98-107) Carbon Dioxide Level 29 mmol/L (21-32) Anion Gap 6 (6-14) Blood Urea Nitrogen 7 mg/dL (8-26) Creatinine 0.9 mg/dL (0.7-1.3) Estimated GFR (Cockcroft-Gault) 93.5 Glucose Level 81 mg/dL (70-99) Calcium Level 7.7 mg/dL (8.5-10.1) Microbiology 11/28/16 Gram Stain - Final, Complete Medications Current Medications Sodium Chloride 1,000 ml @ 1,000 mls/hr Q1H IV Last administered on 11/27/16 14:04; Start 11/27/16 at 14:04; Stop 11/27/16 at 15:03; Status DC Ondansetron HCl (Zofran) 4 mg 1X ONCE IV Last administered on 11/27/16 14:24 ; Start 11/27/16 at 14:15; Stop 11/27/16 at 14:16; Status DC Fentanyl Citrate (Fentanyl 2ml Vial) 25 mcg PRN Q15MIN PRN IV PAIN GREATER THAN 3/10 Last administered on 11/27/16 17:30; Start 11/27/16 at 15:15; Stop at 15:14; Status DC Iohexol (Omnipaque 300 Mg/ml) 75 ml 1X ONCE IV Last administered on 11/27/16 15:26; Start 11/27/16 at 15:30; Stop 11/27/16 at 15:31; Status DC Info (Do NOT chart on this entry -- for MONITORING) 1 each PRN DAILY PRN MC SEE COMMENTS; Start 11/27/16 at 15:30; Stop 11/29/16 at 15:29 Piperacillin Sod/ Tazobactam Sod (Zosyn Per Pharmacy) 1 each PRN DAILY PRN MC SEE COMMENTS; Start 11/27/16 at 17:00 Piperacillin Sod/ Tazobactam Sod 3.375 gm/Sodium Chloride 50 ml @ 100 mls/hr 1X ONCE IV Last administered on 11/27/16 17:30; Start 11/27/16 at 17:00; Stop 11/27/16 at 17:29; Status DC Piperacillin Sod/ Tazobactam Sod 3.375 gm/Sodium Chloride 50 ml @ 100 mls/hr Q6HRS IV Last administered on 11/29/16 11:26; Start 11/28/16 at 00:00 Ondansetron HCl (Zofran) 4 mg PRN Q6HRS PRN IV NAUSEA/VOMITING Last administered on 11/28/16 08:37; Start 11/27/16 at 21:00 Sodium Chloride 1,000 ml @ 75 mls/hr [id number] IV Last administered on 00:09; Start 11/27/16 at 21:00 Morphine Sulfate 2 mg PRN Q2HR PRN IV PAIN Last administered on 11/28/16 10:55 ; Start 11/27/16 at 21:00; Stop 11/29/16 at 00:23; Status DC Al Hydroxide/Mg Hydroxide (Mylanta Plus Xs) 30 ml PRN Q6HRS PRN PO HEARTBURN / GAS Last administered on 11/28/16 19:01; Start 11/27/16 at 21:00 Zolpidem Tartrate (Ambien) 5 mg PRN QHS PRN PO INSOMNIA Last administered on 21:45; Start 11/27/16 at 21:00 Pantoprazole Sodium (Protonix) 40 mg DAILYAC PO Last administered on 11/29/16 06:28; Start 11/28/16 at 07:30 Acetaminophen (Tylenol) 650 mg PRN Q6HRS PRN PO FEVER > 100.5'F Last administered on 11/27/16 21:45; Start 11/27/16 at 21:00 Ondansetron HCl (Zofran) 4 mg PRN Q8HRS PRN IV NAUSEA/VOMITING; Start 11/27/16 at 21:00; Stop 11/28/16 at 20:59; Status DC Morphine Sulfate 4 mg PRN Q2HR PRN IV PAIN Last administered on 11/28/16 17:46 ; Start 11/27/16 at 21:00; Stop 11/28/16 at 20:59; Status DC Fluconazole/ Sodium Chloride 200 ml @ 100 mls/hr Q24H IV Last administered on 11/28/16 20:41; Start 11/27/16 at 21:30 Dextrose/Sodium Chloride 1,000 ml @ 100 mls/hr 1X ONCE IV ; Start 11/27/16 at 21:00; Stop 11/28/16 at 06:59; Status DC Potassium Chloride 100 ml @ 100 mls/hr Q1H IV Last administered on 11/28/16 17:46; Start 11/28/16 at 10:00; Stop 11/28/16 at 13:59; Status DC Naloxone HCl (Narcan) 0.4 mg STK-MED ONCE .ROUTE ; Start 11/28/16 at 12:40; Stop 11/28/16 at 12:42; Status DC Lidocaine/Sodium Bicarbonate (Buffered Lidocaine 1%) 20 ml STK-MED ONCE IJ ; Start 11/28/16 at 12:40; Stop 11/28/16 at 12:42; Status DC Flumazenil (Romazicon) 0.5 mg STK-MED ONCE IV ; Start 11/28/16 at 12:40; Stop at 12:42; Status DC Midazolam HCl (Versed) 5 mg STK-MED ONCE .ROUTE ; Start 11/28/16 at 12:40; Stop 11/28/16 at 12:42; Status DC Fentanyl Citrate (Fentanyl 5ml Vial) 250 mcg STK-MED ONCE .ROUTE ; Start at 12:40; Stop 11/28/16 at 12:42; Status DC Lidocaine/Sodium Bicarbonate (Buffered Lidocaine 1%) 20 ml 1X ONCE IJ Last administered on 11/28/16 13:09; Start 11/28/16 at 13:00; Stop 11/28/16 at 13:01 ; Status DC Midazolam HCl (Versed) 5 mg 1X ONCE IV Last administered on 11/28/16 13:09; Start 11/28/16 at 13:00; Stop 11/28/16 at 13:01; Status DC Fentanyl Citrate (Fentanyl 5ml Vial) 250 mcg 1X ONCE IV Last administered on 13:00; Start 11/28/16 at 13:00; Stop 11/28/16 at 13:01; Status DC Morphine Sulfate 2 mg PRN Q2HR PRN IV PAIN Last administered on 11/29/16 06:34 ; Start 11/29/16 at 00:23 Active Scripts Active Reported Wellbutrin (Bupropion Hcl) 100 Mg Tablet 150 Mg PO DAILY Vitals/I & O Vital Sign - Last 24 Hours 11/28/16 11/28/16 11/28/16 11/28/16 12:49 12:54 12:59 13:00 Pulse 110 99 116 117 Resp 16 14 14 16 Pulse Ox 96 94 95 96 811/28/16 11/28/16 11/28/16 13:00 13:00 13:07 13:30 Pulse 75 110 83 Resp 16 16 B/P (MAP) 126/74 (91) 131/79 (96) Pulse Ox 97 96 95 96 O2 Delivery Nasal Cannula Room Air Room Air Room Air O2 Flow Rate 2.0 11/28/16 11/28/16 11/28/16 11/28/16 14:00 15:00 15:00 16:00 Temp 97.9 97.9 Pulse 76 90 79 75 Resp 18 B/P (MAP) 118/65 (82) 130/77 (94) 126/74 (91) 127/73 (91) Pulse Ox 96 96 95 96 O2 Delivery Room Air Room Air Room Air Room Air 11/28/16 11/28/16 11/28/16 11/28/16 17:46 18:18 19:00 19:50 Temp 97.7 97.7 Pulse 95 Resp 16 16 18 B/P (MAP) 110/63 (79) Pulse Ox 96 O2 Delivery Room Air Room Air Room Air Room Air 11/28/16 11/28/16 11/29/16 11/29/16 20:42 23:00 00:33 01:05 Temp 98.1 98.1 Pulse 75 Resp 18 20 18 B/P (MAP) 118/80 (93) Pulse Ox 95 95 95 O2 Delivery Room Air Room Air Room Air O2 Flow Rate 2.0 2.0 11/29/16 11/29/16 11/29/16 11/29/16 03:00 06:34 07:00 07:32 Temp 97.9 97.9 97.9 97.9 Pulse 66 69 Resp 18 20 18 B/P (MAP) 123/76 (92) 136/78 (97) Pulse Ox 94 94 98 94 O2 Delivery Room Air Room Air Room Air Room Air O2 Flow Rate 2.0 11/29/16 11:08 Temp 98.2 98.2 Pulse 70 Resp 18 B/P (MAP) 121/82 (95) Pulse Ox 98 O2 Delivery Room Air Intake and Output 11/28/16 11/28/16 11/29/16 15:00 23:00 07:00 Intake Total 1300 ml 480 ml 2161 ml Output Total 80 ml 420 ml 30 ml Balance 1220 ml 60 ml 2131 ml CASTLE,NIAL K III DO Nov 29, 2016 12:18
[2016-11-29 15:00] VITALS: BP 124/82
[2016-11-29] MEDS: NICOTINE 21MG PATCH. TD PRN (16:09)
[2016-11-29] MEDS: MAG HYDROX/ALUMINUM HYD/SIMETH 30 ML ORAL.SUSP PO PRN (16:09)
[2016-11-29 19:00] VITALS: BP 142/82
[2016-11-29] MEDS: FLUCONAZOLE 400MG/200ML PREMIX 200 ML IV SCH (21:45)
[2016-11-29] MEDS: ZOLPIDEM 5 MG TABLET. PO PRN (21:46)
[2016-11-29 23:00] VITALS: BP 138/75
[2016-11-30] MEDS: PIPERACILLIN/TAZOBACTAM 3.375 GM in IV NORMAL SALINE 50ML 50 ML IV SCH ×4 (00:02→17:50)
[2016-11-30] MEDS: IV NORMAL SALINE 1000ML BAG 1,000 ML IV SCH ×2 (02:20→15:40)
[2016-11-30 03:00] VITALS: BP 135/80
[2016-11-30 07:00] VITALS: BP 124/82
[2016-11-30] MEDS: PANTOPRAZOLE 40 MG TABLET.DR. PO SCH (08:22)
[2016-11-30] MEDS: NICOTINE 21MG PATCH. TD PRN (08:23)
[2016-11-30 11:00] VITALS: BP 130/77
--- NOTE | 2016-11-30 11:23 | PDOC ---
Infectious Disease Note Subjective Subjective Feels good No fever last 24 hours ROS ROS GEN: Denies fevers, chills, sweats HEENT: Denies blurred vision, sore throat CV: Denies chest pain RESP: Denies shortness of air, cough GI: Denies n/v/d NEURO: Denies confusion, dizziness MSK: Denies weakness, joint pain/swelling Vital Sign Vital Signs Vital Signs Date Time Temp Pulse Resp B/P (MAP) Pulse Ox O2 Delivery O2 Flow Rate FiO2 11/30/16 08:20 Room Air 11/30/16 07:00 97.6 69 16 124/82 (96) 98 97.6 11/29/16 07:32 2.0 Physical Exam PHYSICAL EXAM GENERAL: Propped up in bed, relaxed appearance LUNGS: Clear. HEART: Normal S1, S2. ABDOMEN: Nondistended, bowel sounds are present, soft, LLQ HERBERT - purulent drainage EXTREMITIES: No gross edema or cyanosis. SKIN: Without rash. NEUROLOGIC: Alert and oriented x 3. No focal deficits appreciated. Labs Micro ANAEROBIC-AEROBIC CULTURE PENDING ANAEROBIC RES 1 PENDING AEROBIC CULT Preliminary Preliminary report AEROBIC RES 1 Preliminary Comment Streptococcus anginosus group Objective Assessment Multiple pelvic abscesses s/p HERBERT drain, 11/28. Strep anginosis so far Colitis Fever, better Leukocytosis, improved Plan Plan of Care Zosyn and fluconazole f/u cultures Monitor lab values and temp Patient seen and examined. Chart reviewed. Case discussed with NURSING UNIT COORDINATOR. Agree with above note and plan. HUGO SHERIDAN APRN Nov 30, 2016 11:23 VERN FRAZIER MD Nov 30, 2016 19:04
--- NOTE | 2016-11-30 13:25 | PDOC ---
SURGICAL PROGRESS NOTE Subjective Pt feels well, adrian Po, Vital Signs Vital Signs Date Time Temp Pulse Resp B/P (MAP) Pulse Ox O2 Delivery O2 Flow Rate FiO2 11/30/16 11:00 99.1 59 16 130/77 (94) 98 Room Air 99.1 11/29/16 07:32 2.0 I&O Intake and Output 11/30/16 07:00 Intake Total 480 ml Output Total 100 ml Balance 380 ml Intake Oral 480 ml Output Drainage Total 100 ml # Voids 2 # Bowel Movements 2 General: Alert, Oriented X3, Cooperative, No acute distress Abdomen: Soft, No tenderness, Other (drain with purulent output) Psych/Mental Status: Mental status NL, Mood NL Labs Laboratory Tests Test 11/29/16 04:21 White Blood Count 9.9 x10^3/uL (4.0-11.0) Red Blood Count 3.68 x10^6/uL (4.30-5.70) Hemoglobin 11.7 g/dL (13.0-17.5) Hematocrit 33.6 % (39.0-53.0) Mean Corpuscular Volume 91 fL (79-100) Mean Corpuscular Hemoglobin 32 pg (25-35) Mean Corpuscular Hemoglobin Concent 35 g/dL (31-37) Red Cell Distribution Width 12.6 % (11.5-14.5) Platelet Count 341 x10^3/uL (140-400) Neutrophils (%) (Auto) 75 % (31-73) Lymphocytes (%) (Auto) 15 % (24-48) Monocytes (%) (Auto) 9 % (0-9) Eosinophils (%) (Auto) 0 % (0-3) Basophils (%) (Auto) 1 % (0-3) Neutrophils # (Auto) 7.4 x10^3uL (1.8-7.7) Lymphocytes # (Auto) 1.5 x10^3/uL (1.0-4.8) Monocytes # (Auto) 0.9 x10^3/uL (0.0-1.1) Eosinophils # (Auto) 0.0 x10^3/uL (0.0-0.7) Basophils # (Auto) 0.1 x10^3/uL (0.0-0.2) Sodium Level 139 mmol/L (136-145) Potassium Level 3.6 mmol/L (3.5-5.1) Chloride Level 104 mmol/L (98-107) Carbon Dioxide Level 29 mmol/L (21-32) Anion Gap 6 (6-14) Blood Urea Nitrogen 7 mg/dL (8-26) Creatinine 0.9 mg/dL (0.7-1.3) Estimated GFR (Cockcroft-Gault) 93.5 Glucose Level 81 mg/dL (70-99) Calcium Level 7.7 mg/dL (8.5-10.1) Assessment/Plan abd abscess appears to be improving pt and pt's interested in d/c considering family issues OK to d/c from surgery POV, recommend colonoscopy electively, f/u with Gi as outpt Recommend outpt CT for possible drain removal Problems: GALILEA VILLAGRAN MD Nov 30, 2016 13:25
--- NOTE | 2016-11-30 14:02 | PDOC ---
PROGRESS NOTES Chief Complaint Chief Complaint Abdominal pain with sigmoid colitis and abd/pelvis abscess Colitis Sepsis History of Present Illness History of Present Illness Patient was lying on the bed. AOX3. Patient states he is feeling well. Has an abdominal drain in place and appears to be draining a small amount of material. Vitals Vitals Vital Signs Date Time Temp Pulse Resp B/P (MAP) Pulse Ox O2 Delivery O2 Flow Rate FiO2 11/30/16 11:00 99.1 59 16 130/77 (94) 98 Room Air 99.1 11/29/16 07:32 2.0 Physical Exam General: Alert, Oriented X3, Cooperative, No acute distress Heart: Regular rate, Normal S1, Normal S2, No murmurs Lungs: Clear, Other Abdomen: Soft, No tenderness, Other (drain with purulent output) Extremities: No clubbing, No cyanosis Skin: No rashes, No breakdown Review of Systems Review of Systems Patient complains of mild abdominal pain. Patient complains of weakness. Assessment and Plan Assessmemt and Plan Assessment: Abdominal pain with sigmoid colitis and abd/pelvis abscess Colitis Sepsis Plan: 1. Continue antibiotics 2. Continue IVF 3. Continue pain medications 4. Continue wound care 5. Recheck labs 6. Home medications Problems: Comment Review of Relevant I have reviewed the following items bernardo (where applicable) has been applied. Labs Laboratory Tests Test 11/29/16 04:21 White Blood Count 9.9 x10^3/uL (4.0-11.0) Red Blood Count 3.68 x10^6/uL (4.30-5.70) Hemoglobin 11.7 g/dL (13.0-17.5) Hematocrit 33.6 % (39.0-53.0) Mean Corpuscular Volume 91 fL (79-100) Mean Corpuscular Hemoglobin 32 pg (25-35) Mean Corpuscular Hemoglobin Concent 35 g/dL (31-37) Red Cell Distribution Width 12.6 % (11.5-14.5) Platelet Count 341 x10^3/uL (140-400) Neutrophils (%) (Auto) 75 % (31-73) Lymphocytes (%) (Auto) 15 % (24-48) Monocytes (%) (Auto) 9 % (0-9) Eosinophils (%) (Auto) 0 % (0-3) Basophils (%) (Auto) 1 % (0-3) Neutrophils # (Auto) 7.4 x10^3uL (1.8-7.7) Lymphocytes # (Auto) 1.5 x10^3/uL (1.0-4.8) Monocytes # (Auto) 0.9 x10^3/uL (0.0-1.1) Eosinophils # (Auto) 0.0 x10^3/uL (0.0-0.7) Basophils # (Auto) 0.1 x10^3/uL (0.0-0.2) Sodium Level 139 mmol/L (136-145) Potassium Level 3.6 mmol/L (3.5-5.1) Chloride Level 104 mmol/L (98-107) Carbon Dioxide Level 29 mmol/L (21-32) Anion Gap 6 (6-14) Blood Urea Nitrogen 7 mg/dL (8-26) Creatinine 0.9 mg/dL (0.7-1.3) Estimated GFR (Cockcroft-Gault) 93.5 Glucose Level 81 mg/dL (70-99) Calcium Level 7.7 mg/dL (8.5-10.1) Microbiology 11/28/16 Anaerobic/Aerobic Culture, Resulted Pending 11/28/16 Anaerobic Culture Result 1 (RAMANA), Resulted Pending 11/28/16 Aerobic Culture - Preliminary, Resulted 11/28/16 Aerobic Culture Result 1 (RAMANA) - Preliminary, Resulted 11/27/16 Urine Culture - Preliminary, Resulted 11/27/16 Urine Culture Result 1 (RAMANA) - Preliminary, Resulted Medications Current Medications Sodium Chloride 1,000 ml @ 1,000 mls/hr Q1H IV Last administered on 11/27/16 14:04; Start 11/27/16 at 14:04; Stop 11/27/16 at 15:03; Status DC Ondansetron HCl (Zofran) 4 mg 1X ONCE IV Last administered on 11/27/16 14:24 ; Start 11/27/16 at 14:15; Stop 11/27/16 at 14:16; Status DC Fentanyl Citrate (Fentanyl 2ml Vial) 25 mcg PRN Q15MIN PRN IV PAIN GREATER THAN 3/10 Last administered on 11/27/16 17:30; Start 11/27/16 at 15:15; Stop at 15:14; Status DC Iohexol (Omnipaque 300 Mg/ml) 75 ml 1X ONCE IV Last administered on 11/27/16 15:26; Start 11/27/16 at 15:30; Stop 11/27/16 at 15:31; Status DC Info (Do NOT chart on this entry -- for MONITORING) 1 each PRN DAILY PRN MC SEE COMMENTS; Start 11/27/16 at 15:30; Stop 11/29/16 at 15:29; Status DC Piperacillin Sod/ Tazobactam Sod (Zosyn Per Pharmacy) 1 each PRN DAILY PRN MC SEE COMMENTS; Start 11/27/16 at 17:00 Piperacillin Sod/ Tazobactam Sod 3.375 gm/Sodium Chloride 50 ml @ 100 mls/hr 1X ONCE IV Last administered on 11/27/16 17:30; Start 11/27/16 at 17:00; Stop 11/27/16 at 17:29; Status DC Piperacillin Sod/ Tazobactam Sod 3.375 gm/Sodium Chloride 50 ml @ 100 mls/hr Q6HRS IV Last administered on 11/30/16 05:28; Start 11/28/16 at 00:00 Ondansetron HCl (Zofran) 4 mg PRN Q6HRS PRN IV NAUSEA/VOMITING Last administered on 11/28/16 08:37; Start 11/27/16 at 21:00 Sodium Chloride 1,000 ml @ 75 mls/hr [id number] IV Last administered on 02:20; Start 11/27/16 at 21:00 Morphine Sulfate 2 mg PRN Q2HR PRN IV PAIN Last administered on 11/28/16 10:55 ; Start 11/27/16 at 21:00; Stop 11/29/16 at 00:23; Status DC Al Hydroxide/Mg Hydroxide (Mylanta Plus Xs) 30 ml PRN Q6HRS PRN PO HEARTBURN / GAS Last administered on 11/29/16 16:09; Start 11/27/16 at 21:00 Zolpidem Tartrate (Ambien) 5 mg PRN QHS PRN PO INSOMNIA Last administered on 21:46; Start 11/27/16 at 21:00 Pantoprazole Sodium (Protonix) 40 mg DAILYAC PO Last administered on 11/30/16 08:22; Start 11/28/16 at 07:30 Acetaminophen (Tylenol) 650 mg PRN Q6HRS PRN PO FEVER > 100.5'F Last administered on 11/27/16 21:45; Start 11/27/16 at 21:00 Ondansetron HCl (Zofran) 4 mg PRN Q8HRS PRN IV NAUSEA/VOMITING; Start 11/27/16 at 21:00; Stop 11/28/16 at 20:59; Status DC Morphine Sulfate 4 mg PRN Q2HR PRN IV PAIN Last administered on 11/28/16 17:46 ; Start 11/27/16 at 21:00; Stop 11/28/16 at 20:59; Status DC Fluconazole/ Sodium Chloride 200 ml @ 100 mls/hr Q24H IV Last administered on 11/29/16 21:45; Start 11/27/16 at 21:30 Dextrose/Sodium Chloride 1,000 ml @ 100 mls/hr 1X ONCE IV ; Start 11/27/16 at 21:00; Stop 11/28/16 at 06:59; Status DC Potassium Chloride 100 ml @ 100 mls/hr Q1H IV Last administered on 11/28/16 17:46; Start 11/28/16 at 10:00; Stop 11/28/16 at 13:59; Status DC Naloxone HCl (Narcan) 0.4 mg STK-MED ONCE .ROUTE ; Start 11/28/16 at 12:40; Stop 11/28/16 at 12:42; Status DC Lidocaine/Sodium Bicarbonate (Buffered Lidocaine 1%) 20 ml STK-MED ONCE IJ ; Start 11/28/16 at 12:40; Stop 11/28/16 at 12:42; Status DC Flumazenil (Romazicon) 0.5 mg STK-MED ONCE IV ; Start 11/28/16 at 12:40; Stop at 12:42; Status DC Midazolam HCl (Versed) 5 mg STK-MED ONCE .ROUTE ; Start 11/28/16 at 12:40; Stop 11/28/16 at 12:42; Status DC Fentanyl Citrate (Fentanyl 5ml Vial) 250 mcg STK-MED ONCE .ROUTE ; Start at 12:40; Stop 11/28/16 at 12:42; Status DC Lidocaine/Sodium Bicarbonate (Buffered Lidocaine 1%) 20 ml 1X ONCE IJ Last administered on 11/28/16 13:09; Start 11/28/16 at 13:00; Stop 11/28/16 at 13:01 ; Status DC Midazolam HCl (Versed) 5 mg 1X ONCE IV Last administered on 11/28/16 13:09; Start 11/28/16 at 13:00; Stop 11/28/16 at 13:01; Status DC Fentanyl Citrate (Fentanyl 5ml Vial) 250 mcg 1X ONCE IV Last administered on 13:00; Start 11/28/16 at 13:00; Stop 11/28/16 at 13:01; Status DC Morphine Sulfate 2 mg PRN Q2HR PRN IV PAIN Last administered on 11/29/16 06:34 ; Start 11/29/16 at 00:23 Nicotine (Nicoderm Cq 21mg) 1 patch PRN DAILY PRN TD SMOKING CESSATION Last administered on 11/30/16 08:23; Start 11/29/16 at 16:15 Active Scripts Active Reported Wellbutrin (Bupropion Hcl) 100 Mg Tablet 150 Mg PO DAILY Vitals/I & O Vital Sign - Last 24 Hours 11/29/16 11/29/16 11/29/16 11/29/16 15:00 19:00 20:00 23:00 Temp 97.5 98.2 98.1 97.5 98.2 98.1 Pulse 75 72 69 Resp 18 20 20 B/P (MAP) 124/82 (96) 142/82 (102) 138/75 (96) Pulse Ox 98 98 98 O2 Delivery Room Air Room Air Room Air Room Air 11/30/16 11/30/16 11/30/16 11/30/16 03:00 07:00 08:20 11:00 Temp 97.5 97.6 99.1 97.5 97.6 99.1 Pulse 61 69 59 Resp 20 16 16 B/P (MAP) 135/80 (98) 124/82 (96) 130/77 (94) Pulse Ox 96 98 98 O2 Delivery Room Air Room Air Room Air Room Air Intake and Output 11/29/16 11/29/16 11/30/16 15:00 23:00 07:00 Intake Total 480 ml Output Total 40 ml 30 ml 30 ml Balance -40 ml 450 ml -30 ml SUSY BHARDWAJ III DO Nov 30, 2016 14:02
[2016-11-30 15:00] VITALS: BP 126/78
[2016-11-30 19:00] VITALS: BP 138/79
[2016-11-30] MEDS: FLUCONAZOLE 400MG/200ML PREMIX 200 ML IV SCH (21:31)
[2016-11-30] MEDS: ZOLPIDEM 5 MG TABLET. PO PRN (21:31)
[2016-11-30 23:00] VITALS: BP 135/77
[2016-12-01 03:00] VITALS: BP 134/82
[2016-12-01] MEDS: IV NORMAL SALINE 1000ML BAG 1,000 ML IV SCH ×2 (06:09→18:11)
[2016-12-01] MEDS: PIPERACILLIN/TAZOBACTAM 3.375 GM in IV NORMAL SALINE 50ML 50 ML IV SCH ×5 (06:09→18:00)
[2016-12-01] MEDS: PANTOPRAZOLE 40 MG TABLET.DR. PO SCH (06:10)
[2016-12-01 07:00] VITALS: BP 126/78
--- NOTE | 2016-12-01 09:31 | PDOC ---
FALLON MARTINEZ APRN 12/01/16 0931: SURGICAL PROGRESS NOTE Subjective tolerating diet no pain hoping to discharge today Vital Signs Vital Signs Date Time Temp Pulse Resp B/P (MAP) Pulse Ox O2 Delivery O2 Flow Rate FiO2 12/01/16 07:00 98.0 59 59 126/78 (94) 98 Room Air 98.0 I&O Intake and Output 12/01/16 07:00 Intake Total 560 ml Output Total 40 ml Balance 520 ml Intake Oral 360 ml IV Total 200 ml Output Drainage Total 40 ml # Bowel Movements 2 General: Alert, Oriented X3, Cooperative, No acute distress Abdomen: Soft, Other (purulent drainage from HERBERT, nontender abdomen ) Assessment/Plan pelvic abscess stable abx per ID continue drain, if DC home--FU thursday with Dr Gonzalez for drain management will need GI followup as outpt for colonoscopy once acute process resolved Problems: GALILEA VILLAGRAN MD 12/01/16 1032: SURGICAL PROGRESS NOTE Assessment/Plan Pt seen and examined. Agree with Ms. Martinez's note Pt feels well abd soft, drain with purulent material OK to d/c from surgery POV with drain will need f/u to determine when to remove drain (minimal, serous output) Problems: FALLON MARTINEZ APRN Dec 01, 2016 09:31 GALILEA VILLAGRAN MD Dec 01, 2016 10:32
--- NOTE | 2016-12-01 10:11 | PDOC ---
PROGRESS NOTES Chief Complaint Chief Complaint abd/pelvis abscess ASSESSMENT AND PLAN: 1. Sepsis: clinically improving. in IV Abx as per ID service (currently Zosyn , diflucan). abscess culture with Strep anginosus, sens pending 2. Intraabd abscess x2: s/p drain placement by [facility] on 11/29. surgery following. plan to keep drains in place for now. rpt CT prior to removal. ok to D/C, close O/P F/U with Dr Gonzalez 3. Pain control: adequate 4. Anxiety/agitation: can't cope with recent social issues while here in hospital. ativan 0.5 STAT; ok to go outside accompanied. 5. Dispo: pt desires to go home RIANA (father last week). await ID clearance/PO Abx choice if possible History of Present Illness History of Present Illness anxious to go home. states he can't grieve here. nervous breakdown when poss d /c is delayed (until sensitivities of cult available) Vitals Vitals Vital Signs Date Time Temp Pulse Resp B/P (MAP) Pulse Ox O2 Delivery O2 Flow Rate FiO2 12/01/16 07:50 Room Air 12/01/16 07:00 98.0 59 59 126/78 (94) 98 98.0 Physical Exam General: Alert, Oriented X3, Cooperative, No acute distress Heart: Regular rate, Normal S1, Normal S2, No murmurs Lungs: Clear, Other Abdomen: Normal bowel sounds, Soft, No tenderness, Other (purulent drainage from HERBERT) Extremities: No clubbing, No edema Skin: No rashes FINA CROWDER MD Dec 01, 2016 10:11
[2016-12-01 11:00] VITALS: BP 134/79
[2016-12-01] MEDS: NICOTINE 21MG PATCH. TD PRN (11:01)
--- NOTE | 2016-12-01 13:58 | PDOC ---
Infectious Disease Note Subjective Subjective Wants to go home Up walking earlier Feeling emotionally drained, Ativan earlier for anxiety Denies pain No fever or chills ROS ROS RESP: Denies shortness of air, cough GI: Denies n/v/d Vital Sign Vital Signs Vital Signs Date Time Temp Pulse Resp B/P (MAP) Pulse Ox O2 Delivery O2 Flow Rate FiO2 12/01/16 07:50 Room Air 12/01/16 07:00 98.0 59 59 126/78 (94) 98 98.0 Physical Exam PHYSICAL EXAM GENERAL: Propped up in bed, sleeping, arouses easily to name, NAD LUNGS: Clear. HEART: Normal S1, S2. ABDOMEN: Nondistended, bowel sounds are present, soft, LLQ HERBERT - purulent drainage EXTREMITIES: No gross edema or cyanosis. SKIN: Without rash. NEUROLOGIC: oriented Labs Micro ANAEROBIC-AEROBIC CULTURE Final Final report ANAEROBIC RES 1 Final No anaerobic growth in 72 hours. AEROBIC RES 1 Preliminary Streptococcus anginosus group AEROBIC RES 2 Preliminary Enterococcus species Objective Assessment Multiple pelvic abscesses s/p HERBERT drain, 11/28. Strep anginosis and enterococcus Colitis Fever, better Leukocytosis, improved Plan Plan of Care Zosyn and fluconazole, change to po soon f/u sensitivities Anticipate discharge soon D/w D/w micro - no sens yet Attending Co-Sign Attending Co-Sign The patient was seen and interviewed as well as examined at the bedside. The chart was reviewed. The case was discussed. Agree with the plan of care. HGUO SHERIDAN APRN Dec 01, 2016 13:58 ERICA GARNETT MD Dec 01, 2016 17:18
[2016-12-01 15:00] VITALS: BP 120/87
[2016-12-01 19:00] VITALS: BP 132/84
[2016-12-01] MEDS: FLUCONAZOLE 400MG/200ML PREMIX 200 ML IV SCH (22:06)
[2016-12-01] MEDS: ZOLPIDEM 5 MG TABLET. PO PRN (22:15)
[2016-12-01 22:48] VITALS: BP 130/84
[2016-12-02] MEDS: PIPERACILLIN/TAZOBACTAM 3.375 GM in IV NORMAL SALINE 50ML 50 ML IV SCH ×2 (00:38→06:35)
[2016-12-02 03:07] VITALS: BP 140/83
[2016-12-02] MEDS: PANTOPRAZOLE 40 MG TABLET.DR. PO SCH (06:40)
[2016-12-02 07:00] VITALS: BP 124/85
[2016-12-02] MEDS: IV NORMAL SALINE 1000ML BAG 1,000 ML IV SCH (07:27)
--- NOTE | 2016-12-02 09:28 | PDOC ---
Infectious Disease Note Subjective Subjective Wants to go home Denies pain No fever or chills ROS ROS GEN: Denies fevers, chills, sweats HEENT: Denies blurred vision, sore throat CV: Denies chest pain RESP: Denies shortness of air, cough GI: Denies n/v/d NEURO: Denies confusion, dizziness MSK: Denies weakness, joint pain/swelling Vital Sign Vital Signs Vital Signs Date Time Temp Pulse Resp B/P (MAP) Pulse Ox O2 Delivery O2 Flow Rate FiO2 12/02/16 08:00 Room Air 2.0 12/02/16 07:00 99.0 74 16 124/85 (98) 95 99.0 Physical Exam PHYSICAL EXAM GENERAL: Propped up in bed, NAD, looks well OC/Op- clear LUNGS: Clear. HEART: Normal S1, S2. ABDOMEN: Nondistended, bowel sounds are present, soft, LLQ HERBERT - darker but less purulent drainage EXTREMITIES: No gross edema or cyanosis. SKIN: Without rash. NEUROLOGIC: oriented Objective Assessment Multiple pelvic abscesses s/p HERBERT drain, 11/28. Strep anginosis and enterococcus - d/w micro this am. Enterococcus -amp sensitive Colitis Fever, better Leukocytosis, improved Plan Plan of Care D/c Zosyn and IV fluconazole OK to d/c home today change to po Augmentin for 3 weeks fluconazole for another week Would recommend repeat CT but defer to surgery re: timing Can f/u in ID office in 2 weeks [phone] ERICA GANRETT MD Dec 02, 2016 09:28
[2016-12-02] MEDS ORDERED: AMOXICILLIN/K CLAV 875/125MG TABLET. PO SCH (10:00)
--- NOTE | 2016-12-02 10:14 | PDOC ---
FALLON STOKES APRN 12/02/16 1014: SURGICAL PROGRESS NOTE Subjective No n/v tolerating diet no pain Vital Signs Vital Signs Date Time Temp Pulse Resp B/P (MAP) Pulse Ox O2 Delivery O2 Flow Rate FiO2 12/02/16 08:00 Room Air 2.0 12/02/16 07:00 99.0 74 16 124/85 (98) 95 99.0 I&O Intake and Output 12/02/16 07:00 Intake Total 2289 ml Output Total 40 ml Balance 2249 ml Intake Oral 0 ml IV Total 2289 ml Output Drainage Total 40 ml # Voids 2 General: Alert, Oriented X3, Cooperative, No acute distress Abdomen: Soft, No tenderness, Other (ND, drain purulent) Assessment/Plan abd abscess abx per ID home with drain, FU in clinic next week with Dr Rodriguez Problems: GALILEA RODRIGUEZ MD 12/02/16 1416: SURGICAL PROGRESS NOTE Assessment/Plan Pt seen and examined. Agree with Ms. Stokes's note Pt feels well abd soft, NTTP, HERBERT with greenish brown output encouraged pt to fu as outpt for CT and drain removal Problems: FALLON STOKES APRN Dec 02, 2016 10:14 GALILEA RODRIGUEZ MD Dec 02, 2016 14:16
[2016-12-02 11:00] VITALS: BP 113/74
[2016-12-02] MEDS ORDERED: HYDR-971 PO (11:43)
[2016-12-02] MEDS ORDERED: AMOX1TAB11 PO (11:43)
[2016-12-02] MEDS ORDERED: FLUC100T PO (12:23)
[2016-12-02] MEDS ORDERED: FLUCONAZOLE 100 MG TABLET. PO SCH (21:00)
== END 2016-12-02 12:53 | disposition home or self-care (01) | DRG 871 ==
LOC: ER 13:07 → 4 NORTH 16:51
PROVIDERS: ADMIT Internal Medicine; ATTEND Internal Medicine
PROC: 0W9G30Z Drainage of Peritoneal Cavity with Drainage Device, Percutaneous Approach (ICD-10-PCS; principal; 2016-11-28)
DX: A41.9 Sepsis, unspecified organism (principal); K65.1 Peritoneal abscess; K52.9 Noninfective gastroenteritis and colitis, unspecified; F17.210 Nicotine dependence, cigarettes, uncomplicated; F41.9 Anxiety disorder, unspecified; B95.4 Other streptococcus as the cause of diseases classified elsewhere; Z91.040 Latex allergy status; Z82.3 Family history of stroke; Z90.89 Acquired absence of other organs; Z98.52 Vasectomy status; Z82.49 Family history of ischemic heart disease and other diseases of the circulatory system
CPT/HCPCS: 36415; 49406; 74177; 80048; 80053; 80307; 81001; 83605; 83690; 85007; 85025; 85027; 85610; 85730; 87071; 87075; 87086; 87205; 87324; 96361; 96365; 96375; 96376; 99152; C1729; C1769; C1892; C1894; J1450; J2060; J2250; J2270; J2405; J2543; J3010; J3480; J7030; Q9967; 99285-25; G0479

== ENCOUNTER 2016-12-18 07:34 | Outpatient (CLI) | payer BC ==
[~2016-12-18] VITALS: Ht 182.9 cm; Wt 86.2 kg
[~2016-12-18 07:34] MED LIST changes: +AMOX1TAB11 PO; +FLUC100T PO; +HYDR-971 PO
[2016-12-18 07:59] VITALS: BP 119/84
[2016-12-18] MEDS ORDERED: LACT1CAP6 PO (08:14)
[2016-12-18] MEDS ORDERED: CONTRAST GIVEN MC PRN (08:45)
--- NOTE | 2016-12-18 08:52 | PDOC ---
BRIEF OPERATIVE NOTE Pre-Op Diagnosis Abdominal abcess Post-Op Diagnosis same Procedure Performed Abcessogram Surgeon Landon Findings 4 cc involuted cavity without enteric communication. Drain removed. YASMANY PUTNAM MD Dec 18, 2016 08:52
[2016-12-18] MEDS ORDERED: IOHEXOL 300 MG/ML 50 ML VIAL. INT CAT ONE (09:00)
--- NOTE | 2016-12-18 13:42 | RAD ---
Fluoroscopic guided abscessogram and drain removal. Clinical indication: 41-year-old with indwelling abdominal drainage catheter, limited output. Fluoroscopy: 0.9 minutes. Images: 1. Technique and findings: Following informed consent, the patient was placed on the fluoroscopy table and the drainage catheter was cleansed with alcohol. Contrast was then injected. A total 4 cc was injected into the involuted abscess cavity prior to contrast extravasation alongside the catheter. There is no fistulous communication with any enteric structures. The catheter was then cut and removed. Impression: 1. Abscessogram demonstrating involution of the abscess cavity with no enteric fistulization. 2. Removal of the abdominal drainage catheter.
== END 2016-12-18 09:10 | disposition home or self-care (01) ==
LOC: INTRAD 07:34
PROVIDERS: ATTEND Surgery
DX: Z48.03 Encounter for change or removal of drains (principal); F17.200 Nicotine dependence, unspecified, uncomplicated; Z91.040 Latex allergy status
CPT/HCPCS: 49424; 76080; Q9967